=== PATIENT | male | born 1950 | race African-American/Black ===

== ENCOUNTER 2017-07-07 21:21 | Inpatient (IN) | payer OTHER ==
[~2017-07-07] VITALS: Ht 172.7 cm; Wt 93.4 kg
[2017-07-07 21:10] VITALS: BP 146/86
[2017-07-07 21:20] VITALS: BP 146/86
[2017-07-07] MEDS ORDERED: ZOLPIDEM TARTRATE 5MG TABLET PO PRN (21:45)
[2017-07-07] MEDS ORDERED: CLONIDINE 0.1MG TABLET PO PRN (21:45)
[2017-07-07] MEDS ORDERED: HYDROCODONE/ACETAMINOPHEN 5/325MG TABLET PO PRN (21:45)
[2017-07-07] MEDS ORDERED: ACETAMINOPHEN 325MG TABLET PO PRN (21:45)
[2017-07-07] MEDS ORDERED: IPRATROPIUM/ALBUTEROL 0.5-3(2.5)MG/3ML NEB HHN PRN (21:45)
[2017-07-07] MEDS ORDERED: ONDANSETRON HCL 4MG TABLET PO PRN (21:45)
[2017-07-07] MEDS: NIFEDIPINE XL 60MG TAB PO SCH (22:32)
[2017-07-08] MEDS ORDERED: OLME40TA12 PO ×2 (03:28→03:37)
[2017-07-08] MEDS ORDERED: FURO40TA5 PO (03:30)
[2017-07-08] MEDS ORDERED: ACET1TAB12 PO (03:30)
[2017-07-08] MEDS ORDERED: COLC0.6T66 PO (03:37)
[2017-07-08] MEDS ORDERED: ALLO300T2 PO (03:37)
[2017-07-08] MEDS ORDERED: DICL75TA5 PO (03:37)
[2017-07-08] MEDS ORDERED: POTA10TA15 PO (03:37)
[2017-07-08] MEDS ORDERED: AMLO10TA4 PO (03:37)
[2017-07-08] MEDS ORDERED: PERINDOPRIL PO (03:39)
[2017-07-08 07:51] LABS: BASOPHILS % 1.3 % (0.0-2.0); EOSINOPHILS % 3.9 % (0.0-5.0); HEMATOCRIT. 40.8 % (42.0-52.0); HEMOGLOBIN. 13.4 g/dL (14.0-18.0); LYMPHOCYTES % 14.3 % (20.0-50.0); MEAN CORPUSCULAR HEMOGLOBIN 28.1 pg (28.0-32.0); MEAN CORPUSCULAR VOLUME 85.2 fL (80.0-94.0); MEAN PLATELET VOLUME 9.9 fl (7.4-10.4); MONOCYTES % 14.1 % (2.0-8.0); NEUTROPHILS % 66.4 % (40.0-76.0); PLATELET 212 x1000/uL (130-400); RED BLOOD CELL COUNT 4.79 mill/uL (4.7-6.1); RED CELL DISTRIBUTION WIDTH 15.6 % (11.6-14.6)
[2017-07-08 08:00] VITALS: BP 155/76
[2017-07-08 08:33] LABS: CARBON DIOXIDE 24 mEq/L (21-32); CHLORIDE 97 mEq/L (98-107); PREALBUMIN 14.3 mg/dL (20.0-40.0)
[2017-07-08] MEDS: CLONIDINE 0.1MG TABLET PO SCH ×2 (09:00→17:47)
[2017-07-08] MEDS ORDERED: ENOXAPARIN 40MG/0.4ML SYR SUBCUT SCH (09:00)
[2017-07-08] MEDS ORDERED: BENAZEPRIL 5MG TABLET PO SCH (09:00)
[2017-07-08] MEDS: DOCUSATE SODIUM 100MG CAPSULE PO SCH ×2 (09:31→17:47)
[2017-07-08] MEDS: CLOPIDOGREL 75MG TABLET PO SCH (09:31)
[2017-07-08] MEDS: HYDROCHLOROTHIAZIDE 25MG TABLET PO SCH (09:32)
[2017-07-08] MEDS: NIFEDIPINE XL 60MG TAB PO SCH ×2 (09:32→20:28)
[2017-07-08] MEDS: METOPROLOL TARTRATE 50MG TABLET PO SCH ×2 (09:32→20:29)
[2017-07-08] MEDS: MINOXIDIL 2.5MG TABLET PO SCH (09:33)
[2017-07-08 11:05] VITALS: BP 139/82
[2017-07-08] MEDS: LISINOPRIL 40MG TABLET PO SCH ×2 (11:08→20:28)
[2017-07-08 12:59] LABS: T4 FREE 1.12 ng/dL (0.76-1.46)
[2017-07-08 17:40] VITALS: BP 175/91
[2017-07-08 18:55] VITALS: BP 133/70
[2017-07-08 20:00] VITALS: BP 166/81
[2017-07-08 21:25] VITALS: BP 132/65
[2017-07-09 06:25] LABS: HEMATOCRIT. 39.3 % (42.0-52.0); HEMOGLOBIN. 13.2 g/dL (14.0-18.0); MEAN CORPUSCULAR HEMOGLOBIN 28.3 pg (28.0-32.0); MEAN CORPUSCULAR VOLUME 84.6 fL (80.0-94.0); MEAN PLATELET VOLUME 9.8 fl (7.4-10.4); PLATELET 194 x1000/uL (130-400); RED BLOOD CELL COUNT 4.64 mill/uL (4.7-6.1); RED CELL DISTRIBUTION WIDTH 15.6 % (11.6-14.6)
[2017-07-09 06:43] LABS: CARBON DIOXIDE 26 mEq/L (21-32); CHLORIDE 97 mEq/L (98-107)
[2017-07-09 07:59] VITALS: BP 162/63
[2017-07-09] MEDS: CLOPIDOGREL 75MG TABLET PO SCH (08:17)
[2017-07-09] MEDS: NIFEDIPINE XL 60MG TAB PO SCH ×2 (08:18→21:45)
[2017-07-09] MEDS: CLONIDINE 0.1MG TABLET PO SCH ×2 (08:18→16:33)
[2017-07-09] MEDS: HYDROCHLOROTHIAZIDE 25MG TABLET PO SCH (08:19)
[2017-07-09] MEDS: MINOXIDIL 2.5MG TABLET PO SCH (08:19)
[2017-07-09] MEDS: METOPROLOL TARTRATE 50MG TABLET PO SCH ×2 (08:19→21:45)
[2017-07-09] MEDS: DOCUSATE SODIUM 100MG CAPSULE PO SCH ×2 (08:19→16:26)
[2017-07-09] MEDS: LISINOPRIL 40MG TABLET PO SCH ×2 (08:19→21:44)
[2017-07-09] MEDS: ENOXAPARIN 30MG/0.3ML SYR SUBCUT SCH ×2 (08:19→21:46)
[2017-07-09 08:28] LABS: PLATELET ESTIMATE NORMAL
[2017-07-09] MEDS ORDERED: POTASSIUM CHLORIDE 20MEQ TABLET SR PO NR (08:30)
[2017-07-09 20:07] VITALS: BP 180/86
[2017-07-10] MEDS: LEVOTHYROXINE SODIUM 25MCG TABLET PO SCH (06:15)
[2017-07-10 08:00] VITALS: BP 159/72
[2017-07-10] MEDS: ENOXAPARIN 30MG/0.3ML SYR SUBCUT SCH ×2 (08:56→21:52)
[2017-07-10] MEDS: CLOPIDOGREL 75MG TABLET PO SCH (08:56)
[2017-07-10] MEDS: MINOXIDIL 2.5MG TABLET PO SCH (08:57)
[2017-07-10] MEDS: NIFEDIPINE XL 60MG TAB PO SCH ×2 (08:58→21:51)
[2017-07-10] MEDS: METOPROLOL TARTRATE 50MG TABLET PO SCH ×2 (08:58→21:51)
[2017-07-10] MEDS: CLONIDINE 0.1MG TABLET PO SCH ×2 (08:58→16:47)
[2017-07-10] MEDS: LISINOPRIL 40MG TABLET PO SCH ×2 (08:58→21:50)
[2017-07-10] MEDS: DOCUSATE SODIUM 100MG CAPSULE PO SCH ×2 (08:58→16:47)
[2017-07-10] MEDS ORDERED: HYDROCHLOROTHIAZIDE 25MG TABLET PO SCH (09:00)
[2017-07-10] MEDS: FERROUS SULFATE 325MG TABLET PO SCH (09:02)
[2017-07-10] MEDS: LACTULOSE 20G/30ML UDC PO SCH ×3 (10:10→16:47)
[2017-07-10 10:25] LABS: CARBON DIOXIDE 25 mEq/L (21-32); CHLORIDE 96 mEq/L (98-107)
[2017-07-10 10:48] VITALS: BP 134/76
[2017-07-10] MEDS ORDERED: SODIUM CHLORIDE 0.9% 10ML VIAL ONE (11:07)
[2017-07-10] MEDS ORDERED: IOHEXOL-350 100 ML BOTTLE ONE (11:07)
[2017-07-10 20:00] VITALS: BP 170/92
[2017-07-11] VITALS: BP 130/76
[2017-07-11] MEDS ORDERED: VANCOMYCIN 1,750 MG in DEXT 5% WATER 500 ML IV NR (01:00)
[2017-07-11] MEDS: LEVOTHYROXINE SODIUM 25MCG TABLET PO SCH (06:17)
[2017-07-11 07:25] VITALS: BP 155/77
[2017-07-11] MEDS: DOCUSATE SODIUM 100MG CAPSULE PO SCH ×2 (09:46→18:06)
[2017-07-11] MEDS: LISINOPRIL 40MG TABLET PO SCH ×2 (09:46→20:35)
[2017-07-11] MEDS: CLONIDINE 0.1MG TABLET PO SCH ×3 (09:46→20:27)
[2017-07-11] MEDS: NIFEDIPINE XL 60MG TAB PO SCH ×2 (09:46→21:22)
[2017-07-11] MEDS: FERROUS SULFATE 325MG TABLET PO SCH (09:46)
[2017-07-11] MEDS: METOPROLOL TARTRATE 50MG TABLET PO SCH ×2 (09:47→21:22)
[2017-07-11] MEDS: MINOXIDIL 2.5MG TABLET PO SCH (09:47)
[2017-07-11] MEDS: CLOPIDOGREL 75MG TABLET PO SCH (09:47)
[2017-07-11] MEDS: ENOXAPARIN 30MG/0.3ML SYR SUBCUT SCH ×2 (09:47→21:17)
[2017-07-11] MEDS: HYDROCHLOROTHIAZIDE 50MG TABLET PO SCH (10:00)
[2017-07-11 10:18] LABS: HEMATOCRIT. 41.2 % (42.0-52.0); HEMOGLOBIN. 13.7 g/dL (14.0-18.0); MEAN CORPUSCULAR VOLUME 84.2 fL (80.0-94.0); MEAN PLATELET VOLUME 9.6 fl (7.4-10.4); PLATELET 203 x1000/uL (130-400); RED BLOOD CELL COUNT 4.89 mill/uL (4.7-6.1); RED CELL DISTRIBUTION WIDTH 15.2 % (11.6-14.6)
[2017-07-11 10:32] LABS: CARBON DIOXIDE 27 mEq/L (21-32); CHLORIDE 94 mEq/L (98-107)
[2017-07-11 12:14] LABS: ANTI-CARDIOLIPIN AB IGA < 9 APL U/mL (0-11); ANTI-CARDIOLIPIN AB IGG < 9 GPL U/mL (0-14); ANTI-CARDIOLIPIN AB IGM < 9 MPL U/mL (0-12)
[2017-07-11 20:00] VITALS: BP 164/53
[2017-07-11] MEDS ORDERED: POTASSIUM CHLORIDE 20MEQ/PACKET PO NR (20:00)
[2017-07-11] MEDS: VANCOMYCIN 1500MG in DEXTROSE 5% WATER 250ML IV SCH (21:16)
[2017-07-11] MEDS ORDERED: MAGNESIUM 2 G PREMIX 50 ML IV NR (21:30)
[2017-07-11 22:57] LABS: PLATELET ESTIMATE NORMAL
[2017-07-12 05:28] LABS: CLARITY URINE CLEAR (CLEAR); COLOR URINE YELLOW (YELLOW); GLUCOSE URINE NEGATIVE (NEGATIVE); KETONES URINE NEGATIVE (NEGATIVE); LEUKOCYTE ESTERASE URINE 1+ (NEGATIVE); NITRITE URINE NEGATIVE (NEGATIVE); OCCULT BLOOD URINE NEGATIVE (NEGATIVE); PH URINE 7.5 (4.5-8.0); PROTEIN URINE NEGATIVE (NEGATIVE); SPECIFIC GRAVITY URINE 1.018 (1.005-1.030)
[2017-07-12] MEDS: LEVOTHYROXINE SODIUM 25MCG TABLET PO SCH (06:13)
[2017-07-12 06:53] LABS: HEMATOCRIT. 38.7 % (42.0-52.0); HEMOGLOBIN. 13.1 g/dL (14.0-18.0); MEAN CORPUSCULAR HEMOGLOBIN 28.2 pg (28.0-32.0); MEAN CORPUSCULAR VOLUME 83.6 fL (80.0-94.0); MEAN PLATELET VOLUME 10.1 fl (7.4-10.4); PLATELET 192 x1000/uL (130-400); RED BLOOD CELL COUNT 4.63 mill/uL (4.7-6.1)
[2017-07-12 07:35] LABS: CARBON DIOXIDE 26 mEq/L (21-32); CHLORIDE 95 mEq/L (98-107)
[2017-07-12 08:30] VITALS: BP 165/77
[2017-07-12] MEDS: FERROUS SULFATE 325MG TABLET PO SCH (10:15)
[2017-07-12] MEDS: CLOPIDOGREL 75MG TABLET PO SCH (10:15)
[2017-07-12] MEDS: NIFEDIPINE XL 60MG TAB PO SCH ×2 (10:15→20:28)
[2017-07-12] MEDS: CLONIDINE 0.1MG TABLET PO SCH ×2 (10:16→20:27)
[2017-07-12] MEDS: HYDROCHLOROTHIAZIDE 50MG TABLET PO SCH (10:16)
[2017-07-12] MEDS: DOCUSATE SODIUM 100MG CAPSULE PO SCH ×2 (10:16→17:10)
[2017-07-12] MEDS: MINOXIDIL 2.5MG TABLET PO SCH ×2 (10:16→20:28)
[2017-07-12] MEDS: LISINOPRIL 40MG TABLET PO SCH ×2 (10:17→20:28)
[2017-07-12] MEDS: METOPROLOL TARTRATE 50MG TABLET PO SCH ×2 (10:17→20:27)
[2017-07-12] MEDS: ENOXAPARIN 30MG/0.3ML SYR SUBCUT SCH ×2 (10:27→20:28)
[2017-07-12] MEDS: VANCOMYCIN 1500MG in DEXTROSE 5% WATER 250ML IV SCH (14:14)
[2017-07-12 16:36] LABS: PLATELET ESTIMATE NORMAL
[2017-07-12 20:00] VITALS: BP 179/94
[2017-07-12 21:30] VITALS: BP 150/80
[2017-07-13] MEDS: LEVOTHYROXINE SODIUM 25MCG TABLET PO SCH (06:13)
[2017-07-13 06:15] LABS: CARBON DIOXIDE 25 mEq/L (21-32); CHLORIDE 95 mEq/L (98-107)
[2017-07-13 07:19] VITALS: BP 132/52
[2017-07-13] MEDS: VANCOMYCIN 1500MG in DEXTROSE 5% WATER 250ML IV SCH (07:38)
[2017-07-13] MEDS ORDERED: LIDOCAINE HCL 2% JELLY 5ML ONE (08:46)
[2017-07-13] MEDS ORDERED: DIPHENHYDRAMINE 50MG/ML VIAL ONE (08:46)
[2017-07-13] MEDS ORDERED: TETRACAINE/BENZOCAINE/BUTAMBEN 20 GM SPRAY MM ONE (08:47)
[2017-07-13] MEDS ORDERED: MIDAZOLAM HCL 2 MG/2 ML VIAL ONE ×2 (08:51→09:00)
[2017-07-13] MEDS ORDERED: FENTANYL CITRATE/PF 50MCG/ML 2ML VIAL ONE (08:52)
[2017-07-13] MEDS: MINOXIDIL 2.5MG TABLET PO SCH ×2 (09:00→20:30)
[2017-07-13] MEDS: NIFEDIPINE XL 60MG TAB PO SCH ×2 (09:00→20:36)
[2017-07-13] MEDS: HYDROCHLOROTHIAZIDE 50MG TABLET PO SCH (09:00)
[2017-07-13] MEDS: LISINOPRIL 40MG TABLET PO SCH ×2 (09:00→20:29)
[2017-07-13] MEDS: CLOPIDOGREL 75MG TABLET PO SCH (09:00)
[2017-07-13] MEDS: CLONIDINE 0.1MG TABLET PO SCH ×2 (09:00→20:30)
[2017-07-13] MEDS: DOCUSATE SODIUM 100MG CAPSULE PO SCH ×2 (09:00→17:23)
[2017-07-13] MEDS: FERROUS SULFATE 325MG TABLET PO SCH (09:00)
[2017-07-13 09:06] LABS: 25-HYDROXY VITAMIN D3 4.9 ng/mL (.)
[2017-07-13] MEDS ORDERED: NALOXONE HCL 0.4 MG/ML 1ML VIAL ONE ×3 (09:08→09:18)
[2017-07-13 10:30] VITALS: BP 148/81
[2017-07-13] MEDS: ENOXAPARIN 30MG/0.3ML SYR SUBCUT SCH ×2 (11:39→20:31)
[2017-07-13 17:20] VITALS: BP 154/78
[2017-07-13 19:58] VITALS: BP 153/74
[2017-07-13] MEDS: CARVEDILOL 25MG TABLET PO SCH (20:29)
[2017-07-14] MEDS: VANCOMYCIN 1250MG in DEXTROSE 5% WATER 250ML IV SCH ×2 (05:22→23:36)
[2017-07-14] MEDS: LEVOTHYROXINE SODIUM 25MCG TABLET PO SCH (06:10)
[2017-07-14 08:00] VITALS: BP 145/68
[2017-07-14] MEDS: LISINOPRIL 40MG TABLET PO SCH ×2 (09:45→21:50)
[2017-07-14] MEDS: NIFEDIPINE XL 60MG TAB PO SCH ×2 (09:45→21:51)
[2017-07-14] MEDS: DOCUSATE SODIUM 100MG CAPSULE PO SCH ×2 (09:46→17:22)
[2017-07-14] MEDS: POTASSIUM CHLORIDE 20MEQ TABLET SR PO SCH (09:46)
[2017-07-14] MEDS: CLOPIDOGREL 75MG TABLET PO SCH (09:46)
[2017-07-14] MEDS: CLONIDINE 0.1MG TABLET PO SCH ×2 (09:47→21:52)
[2017-07-14] MEDS: CARVEDILOL 25MG TABLET PO SCH ×2 (09:47→21:47)
[2017-07-14] MEDS: MINOXIDIL 2.5MG TABLET PO SCH ×2 (09:47→21:49)
[2017-07-14] MEDS: ENOXAPARIN 30MG/0.3ML SYR SUBCUT SCH ×2 (09:48→21:51)
[2017-07-14 20:00] VITALS: BP 146/67
[2017-07-14] MEDS ORDERED: SENNOSIDES 8.6MG TABLET PO PRN (21:41)
[2017-07-15] MEDS: LEVOTHYROXINE SODIUM 25MCG TABLET PO SCH (06:12)
[2017-07-15 06:56] LABS: HEMATOCRIT. 39.3 % (42.0-52.0); HEMOGLOBIN. 13.2 g/dL (14.0-18.0); MEAN CORPUSCULAR HEMOGLOBIN 28.1 pg (28.0-32.0); MEAN CORPUSCULAR VOLUME 83.9 fL (80.0-94.0); MEAN PLATELET VOLUME 10.6 fl (7.4-10.4); PLATELET 215 x1000/uL (130-400); RED BLOOD CELL COUNT 4.68 mill/uL (4.7-6.1); RED CELL DISTRIBUTION WIDTH 14.8 % (11.6-14.6)
[2017-07-15 07:42] LABS: CHLORIDE 101 mEq/L (98-107)
[2017-07-15 07:57] LABS: CARBON DIOXIDE 23 mEq/L (21-32)
[2017-07-15 08:00] VITALS: BP 137/47
[2017-07-15] MEDS: DOCUSATE SODIUM 100MG CAPSULE PO SCH ×2 (08:41→17:23)
[2017-07-15] MEDS: POTASSIUM CHLORIDE 20MEQ TABLET SR PO SCH (08:41)
[2017-07-15] MEDS: CARVEDILOL 25MG TABLET PO SCH ×2 (08:42→21:26)
[2017-07-15] MEDS: MINOXIDIL 2.5MG TABLET PO SCH ×2 (08:42→21:21)
[2017-07-15] MEDS: LISINOPRIL 40MG TABLET PO SCH ×2 (08:43→21:23)
[2017-07-15] MEDS: NIFEDIPINE XL 60MG TAB PO SCH ×2 (08:43→21:28)
[2017-07-15] MEDS: CLOPIDOGREL 75MG TABLET PO SCH (08:43)
[2017-07-15] MEDS: ENOXAPARIN 30MG/0.3ML SYR SUBCUT SCH ×2 (08:43→21:29)
[2017-07-15] MEDS: CLONIDINE 0.1MG TABLET PO SCH ×2 (10:02→21:26)
[2017-07-15] MEDS: LACTULOSE 20G/30ML UDC PO SCH ×2 (14:00→21:21)
[2017-07-15] MEDS ORDERED: BISACODYL 10MG SUPP PR PRN (14:15)
[2017-07-15] MEDS: VANCOMYCIN 1250MG in DEXTROSE 5% WATER 250ML IV SCH (17:22)
[2017-07-15 20:00] VITALS: BP 135/75
[2017-07-15 22:06] LABS: ATYPICAL LYMPHOCYTES 1; PLATELET ESTIMATE NORMAL
[2017-07-16] MEDS: LACTULOSE 20G/30ML UDC PO SCH ×3 (06:00→22:00)
[2017-07-16] MEDS: LEVOTHYROXINE SODIUM 25MCG TABLET PO SCH (06:31)
[2017-07-16 07:01] VITALS: BP 130/56
[2017-07-16] MEDS: NIFEDIPINE XL 60MG TAB PO SCH (08:29)
[2017-07-16] MEDS: CLOPIDOGREL 75MG TABLET PO SCH (08:29)
[2017-07-16] MEDS: DOCUSATE SODIUM 100MG CAPSULE PO SCH ×2 (08:30→16:46)
[2017-07-16] MEDS: CARVEDILOL 25MG TABLET PO SCH ×2 (08:30→22:32)
[2017-07-16] MEDS: POTASSIUM CHLORIDE 20MEQ TABLET SR PO SCH (08:30)
[2017-07-16] MEDS: MINOXIDIL 2.5MG TABLET PO SCH ×2 (08:30→23:28)
[2017-07-16] MEDS: LISINOPRIL 40MG TABLET PO SCH ×2 (08:31→23:28)
[2017-07-16] MEDS: CLONIDINE 0.1MG TABLET PO SCH ×2 (08:31→21:00)
[2017-07-16] MEDS: ENOXAPARIN 30MG/0.3ML SYR SUBCUT SCH ×2 (08:31→22:30)
[2017-07-16 10:30] VITALS: BP_SYST 127; BP_SYST 98; BP_DIAS 48; BP_DIAS 54
[2017-07-16 19:00] VITALS: BP_SYST 123; BP_SYST 164; BP_DIAS 62; BP_DIAS 66
[2017-07-16] MEDS: NIFEDIPINE XL 30MG TAB PO SCH (22:31)
[2017-07-17] MEDS: LACTULOSE 20G/30ML UDC PO SCH ×3 (06:00→21:36)
[2017-07-17] MEDS: LEVOTHYROXINE SODIUM 25MCG TABLET PO SCH (06:05)
[2017-07-17 08:00] VITALS: BP 101/65
[2017-07-17] MEDS: CARVEDILOL 25MG TABLET PO SCH ×2 (09:00→21:34)
[2017-07-17] MEDS: CLONIDINE 0.1MG TABLET PO SCH ×2 (09:00→21:00)
[2017-07-17] MEDS: LISINOPRIL 40MG TABLET PO SCH ×2 (09:00→21:34)
[2017-07-17] MEDS: CLOPIDOGREL 75MG TABLET PO SCH (09:00)
[2017-07-17] MEDS: DOCUSATE SODIUM 100MG CAPSULE PO SCH ×2 (09:00→17:37)
[2017-07-17] MEDS: MINOXIDIL 2.5MG TABLET PO SCH ×2 (09:00→21:34)
[2017-07-17] MEDS: POTASSIUM CHLORIDE 20MEQ TABLET SR PO SCH (09:00)
[2017-07-17] MEDS: NIFEDIPINE XL 30MG TAB PO SCH ×2 (09:00→17:38)
[2017-07-17] MEDS: ENOXAPARIN 30MG/0.3ML SYR SUBCUT SCH ×2 (09:41→21:35)
[2017-07-17 20:00] VITALS: BP 154/61
[2017-07-17] MEDS ORDERED: ERGOCALCIFEROL 50000UNITS CAPSULE PO SCH (20:15)
[2017-07-18] MEDS: LACTULOSE 20G/30ML UDC PO SCH ×2 (06:00→13:54)
[2017-07-18] MEDS: LEVOTHYROXINE SODIUM 25MCG TABLET PO SCH (06:23)
[2017-07-18 07:12] VITALS: BP 132/51
[2017-07-18] MEDS: LISINOPRIL 40MG TABLET PO SCH (09:00)
[2017-07-18] MEDS: CLONIDINE 0.1MG TABLET PO SCH (09:00)
[2017-07-18 09:30] LABS: HEMATOCRIT. 41.2 % (42.0-52.0); HEMOGLOBIN. 13.7 g/dL (14.0-18.0); MEAN CORPUSCULAR HEMOGLOBIN 27.9 pg (28.0-32.0); MEAN PLATELET VOLUME 10.1 fl (7.4-10.4); PLATELET 211 x1000/uL (130-400); RED BLOOD CELL COUNT 4.91 mill/uL (4.7-6.1); RED CELL DISTRIBUTION WIDTH 14.8 % (11.6-14.6)
[2017-07-18] MEDS: POTASSIUM CHLORIDE 20MEQ TABLET SR PO SCH (09:54)
[2017-07-18] MEDS: MINOXIDIL 2.5MG TABLET PO SCH (09:54)
[2017-07-18] MEDS: CARVEDILOL 25MG TABLET PO SCH (09:54)
[2017-07-18] MEDS: CLOPIDOGREL 75MG TABLET PO SCH (09:54)
[2017-07-18] MEDS: DOCUSATE SODIUM 100MG CAPSULE PO SCH ×2 (09:54→17:00)
[2017-07-18] MEDS: NIFEDIPINE XL 30MG TAB PO SCH (09:54)
[2017-07-18] MEDS: ENOXAPARIN 30MG/0.3ML SYR SUBCUT SCH (09:54)
[2017-07-18 14:24] LABS: PLATELET ESTIMATE NORMAL
[2017-07-18 16:05] VITALS: BP 132/51
[2017-07-18] MEDS ORDERED: SODIUM CHLORIDE 0.9% 1,000 ML IV SCH (19:00)
[2017-07-19] MEDS ORDERED: ZINC SULFATE 220 MG ( 50 ) CAPSULE PO SCH (09:00)
== END 2017-07-18 19:55 | disposition short-term general hospital (02) | DRG 64 ==
PROVIDERS: ADMIT Physical Medicine & Rehabilitation Spinal Cord Injury Medicine; ATTEND Internal Medicine Nephrology
DX: I63.9 Cerebral infarction, unspecified (principal); I21.4 Non-ST elevation (NSTEMI) myocardial infarction; G82.50 Quadriplegia, unspecified; N17.9 Acute kidney failure, unspecified; A41.9 Sepsis, unspecified organism; E22.2 Syndrome of inappropriate secretion of antidiuretic hormone; E46 Unspecified protein-calorie malnutrition; I42.9 Cardiomyopathy, unspecified; I48.91 Unspecified atrial fibrillation; I50.20 Unspecified systolic (congestive) heart failure; I11.0 Hypertensive heart disease with heart failure; Z68.41 Body mass index [BMI] 40.0-44.9, adult; G81.91 Hemiplegia, unspecified affecting right dominant side; L97.919 Non-pressure chronic ulcer of unspecified part of right lower leg with unspecified severity; L03.116 Cellulitis of left lower limb; L03.115 Cellulitis of right lower limb; E44.1 Mild protein-calorie malnutrition; E11.622 Type 2 diabetes mellitus with other skin ulcer; E11.65 Type 2 diabetes mellitus with hyperglycemia; R13.10 Dysphagia, unspecified; I27.2 Other secondary pulmonary hypertension; R47.01 Aphasia; R29.810 Facial weakness; E66.01 Morbid (severe) obesity due to excess calories; D64.9 Anemia, unspecified; R47.1 Dysarthria and anarthria; R26.89 Other abnormalities of gait and mobility; F06.31 Mood disorder due to known physiological condition with depressive features; E87.6 Hypokalemia; F01.50 Vascular dementia, unspecified severity, without behavioral disturbance, psychotic disturbance, mood disturbance, and anxiety; E55.9 Vitamin D deficiency, unspecified; E03.9 Hypothyroidism, unspecified; D50.9 Iron deficiency anemia, unspecified; F10.21 Alcohol dependence, in remission; B95.8 Unspecified staphylococcus as the cause of diseases classified elsewhere; R33.9 Retention of urine, unspecified; K59.00 Constipation, unspecified; Z79.899 Other long term (current) drug therapy
CPT/HCPCS: 36415; 70496; 70498; 70551; 71020; 76770; 80048; 80053; 80061; 80202; 81001; 81400; 81403; 81407; 81479; 82306; 82533; 82607; 82728; 82746; 82962; 83036; 83540; 83550; 83735; 83930; 84134; 84153; 84300; 84439; 84443; 84481; 84550; 84630; 85025; 85300; 85303; 85306; 85613; 85651; 86140; 86147; 86376; 87040; 87086; 92523; 92610; 93005; 93306; 93312; 93970; 97110; 97112; 97116; 97163; 97166; 97530; 97532; 97535; A4216; J1200; J1650; J2250; J2310; J3010; J3370; J3475; J7040; J7050; J7060; J7620; Q9967; A4315

== ENCOUNTER 2017-07-18 20:00 | Inpatient (IN) | payer OTHER ==
[~2017-07-18] VITALS: Ht 170.2 cm; Wt 102.5 kg
[~2017-07-18 20:00] MED LIST: ACET1TAB12 PO; ALLO300T2 PO; AMLO10TA4 PO; COLC0.6T66 PO; DICL75TA5 PO; FURO40TA5 PO; OLME40TA12 PO; PERINDOPRIL PO; POTA10TA15 PO
[2017-07-19] VITALS (7 sets, daily range): BP systolic 141–173; BP diastolic 60–82
[2017-07-19] MEDS ORDERED: ACETAMINOPHEN 325MG TABLET PO PRN (00:15)
[2017-07-19] MEDS ORDERED: IPRATROPIUM/ALBUTEROL 0.5-3(2.5)MG/3ML NEB HHN PRN (00:15)
[2017-07-19] MEDS ORDERED: SENNOSIDES 8.6MG TABLET PO PRN (00:15)
[2017-07-19] MEDS ORDERED: SODIUM CHLORIDE 0.9% 1,000 ML IV SCH (00:15)
[2017-07-19] MEDS ORDERED: BISACODYL 5MG TABLET PO PRN (00:15)
[2017-07-19] MEDS ORDERED: ONDANSETRON HCL 4MG TABLET PO PRN (00:15)
[2017-07-19] MEDS: LACTULOSE 20G/30ML UDC PO SCH ×2 (06:00→14:00)
[2017-07-19] MEDS: LEVOTHYROXINE SODIUM 25MCG TABLET PO SCH (07:13)
[2017-07-19] MEDS: SODIUM CHLORIDE 0.9% 1,000 ML IV SCH ×2 (07:20→17:35)
[2017-07-19] MEDS ORDERED: NIFEDIPINE XL 30MG TAB PO SCH (09:00)
[2017-07-19] MEDS ORDERED: POTASSIUM CHLORIDE 20MEQ TABLET SR PO SCH (09:00)
[2017-07-19] MEDS: CLONIDINE 0.1MG TABLET PO SCH (09:00)
[2017-07-19] MEDS ORDERED: ENOXAPARIN 30MG/0.3ML SYR SUBCUT SCH (09:00)
[2017-07-19] MEDS: DOCUSATE SODIUM 100MG CAPSULE PO SCH ×2 (10:02→17:35)
[2017-07-19] MEDS: CARVEDILOL 25MG TABLET PO SCH ×2 (10:02→21:56)
[2017-07-19] MEDS: MINOXIDIL 2.5MG TABLET PO SCH ×2 (10:03→21:55)
[2017-07-19] MEDS: ZINC SULFATE 220 MG ( 50 ) CAPSULE PO SCH (10:03)
[2017-07-19] MEDS: LISINOPRIL 40MG TABLET PO SCH ×2 (10:04→21:56)
[2017-07-19] MEDS: CLOPIDOGREL 75MG TABLET PO SCH (10:04)
[2017-07-19] MEDS: ENOXAPARIN 30MG/0.3ML SYR SUBCUT SCH (10:05)
[2017-07-20] VITALS: BP 144/57
[2017-07-20 04:00] VITALS: BP 171/71
[2017-07-20] MEDS: SODIUM CHLORIDE 0.9% 1,000 ML IV SCH (06:05)
[2017-07-20] MEDS: LEVOTHYROXINE SODIUM 25MCG TABLET PO SCH (06:05)
[2017-07-20] MEDS: CLONIDINE 0.1MG TABLET PO SCH ×3 (06:06→22:04)
[2017-07-20] MEDS ORDERED: POTASSIUM CHLORIDE 20MEQ TABLET SR PO ONE (06:30)
[2017-07-20 06:50] LABS: HEMATOCRIT. 41.7 % (42.0-52.0); HEMOGLOBIN. 13.9 g/dL (14.0-18.0); MEAN CORPUSCULAR HEMOGLOBIN 27.9 pg (28.0-32.0); MEAN PLATELET VOLUME 10.2 fl (7.4-10.4); PLATELET 238 x1000/uL (130-400); RED BLOOD CELL COUNT 4.97 mill/uL (4.7-6.1)
[2017-07-20] MEDS ORDERED: OMEPRAZOLE 20MG CAPSULE EXTENDED RELEASE PO SCH (07:20)
[2017-07-20 08:00] VITALS: BP 163/91
[2017-07-20] MEDS ORDERED: METOPROLOL TARTRATE 50MG TABLET PO SCH (09:00)
[2017-07-20] MEDS ORDERED: CHLORTHALIDONE 25MG TABLET PO SCH (09:00)
[2017-07-20] MEDS ORDERED: LISINOPRIL 40MG TABLET PO SCH (09:00)
[2017-07-20] MEDS: ENOXAPARIN 30MG/0.3ML SYR SUBCUT SCH (09:08)
[2017-07-20] MEDS: CLOPIDOGREL 75MG TABLET PO SCH (09:08)
[2017-07-20] MEDS: ZINC SULFATE 220 MG ( 50 ) CAPSULE PO SCH (09:08)
[2017-07-20] MEDS: DOCUSATE SODIUM 100MG CAPSULE PO SCH ×2 (09:08→16:45)
[2017-07-20] MEDS: LISINOPRIL 40MG TABLET PO SCH ×2 (09:09→22:04)
[2017-07-20] MEDS: CARVEDILOL 25MG TABLET PO SCH ×2 (09:09→22:04)
[2017-07-20] MEDS: MINOXIDIL 2.5MG TABLET PO SCH ×2 (09:09→22:04)
[2017-07-20 11:25] LABS: CLARITY URINE CLEAR (CLEAR); COLOR URINE YELLOW (YELLOW); GLUCOSE URINE NEGATIVE (NEGATIVE); KETONES URINE NEGATIVE (NEGATIVE); LEUKOCYTE ESTERASE URINE 2+ (NEGATIVE); NITRITE URINE NEGATIVE (NEGATIVE); OCCULT BLOOD URINE NEGATIVE (NEGATIVE); PROTEIN URINE 1+ (NEGATIVE); SPECIFIC GRAVITY URINE 1.015 (1.005-1.030)
[2017-07-20 12:00] VITALS: BP 160/88
[2017-07-20 16:00] VITALS: BP 157/82
[2017-07-20 20:00] VITALS: BP 141/75
[2017-07-21] VITALS: BP 120/60
[2017-07-21 04:00] VITALS: BP 124/73
[2017-07-21] MEDS: LEVOTHYROXINE SODIUM 25MCG TABLET PO SCH (06:58)
[2017-07-21 08:00] VITALS: BP 145/77
[2017-07-21] MEDS: CLONIDINE 0.1MG TABLET PO SCH ×2 (09:00→20:59)
[2017-07-21] MEDS ORDERED: ERGOCALCIFEROL 50000UNITS CAPSULE PO SCH (09:00)
[2017-07-21 09:39] LABS: ATYPICAL LYMPHOCYTES 1; PLATELET ESTIMATE NORMAL
[2017-07-21 09:46] LABS: HEMATOCRIT. 44.5 % (42.0-52.0); HEMOGLOBIN. 15.1 g/dL (14.0-18.0); MEAN CORPUSCULAR HEMOGLOBIN 28.5 pg (28.0-32.0); MEAN CORPUSCULAR VOLUME 84.4 fL (80.0-94.0); MEAN PLATELET VOLUME 9.7 fl (7.4-10.4); PLATELET 221 x1000/uL (130-400); RED BLOOD CELL COUNT 5.28 mill/uL (4.7-6.1); RED CELL DISTRIBUTION WIDTH 14.5 % (11.6-14.6)
[2017-07-21] MEDS: DOCUSATE SODIUM 100MG CAPSULE PO SCH ×2 (10:24→17:45)
[2017-07-21] MEDS: MINOXIDIL 2.5MG TABLET PO SCH ×2 (10:24→21:00)
[2017-07-21] MEDS: CLOPIDOGREL 75MG TABLET PO SCH (10:24)
[2017-07-21] MEDS: ZINC SULFATE 220 MG ( 50 ) CAPSULE PO SCH (10:24)
[2017-07-21] MEDS: LISINOPRIL 40MG TABLET PO SCH ×2 (10:24→20:59)
[2017-07-21] MEDS: CARVEDILOL 25MG TABLET PO SCH ×2 (10:24→20:59)
[2017-07-21] MEDS: ENOXAPARIN 30MG/0.3ML SYR SUBCUT SCH (10:25)
[2017-07-21 12:00] VITALS: BP 152/81
[2017-07-21 12:45] LABS: PLATELET ESTIMATE NORMAL
[2017-07-21 16:00] VITALS: BP 156/58
[2017-07-21 20:00] VITALS: BP 149/88
[2017-07-22] VITALS: BP 142/73
[2017-07-22 04:00] VITALS: BP 123/63
[2017-07-22] MEDS: LEVOTHYROXINE SODIUM 25MCG TABLET PO SCH (06:33)
[2017-07-22 07:15] LABS: HEMATOCRIT. 41.1 % (42.0-52.0); HEMOGLOBIN. 13.8 g/dL (14.0-18.0); MEAN CORPUSCULAR HEMOGLOBIN 28.3 pg (28.0-32.0); MEAN CORPUSCULAR VOLUME 84.3 fL (80.0-94.0); PLATELET 246 x1000/uL (130-400); RED BLOOD CELL COUNT 4.88 mill/uL (4.7-6.1); RED CELL DISTRIBUTION WIDTH 14.7 % (11.6-14.6)
[2017-07-22 08:00] VITALS: BP 157/69
[2017-07-22] MEDS: MINOXIDIL 2.5MG TABLET PO SCH ×2 (08:21→20:44)
[2017-07-22] MEDS: DOCUSATE SODIUM 100MG CAPSULE PO SCH ×2 (08:21→19:06)
[2017-07-22] MEDS: ZINC SULFATE 220 MG ( 50 ) CAPSULE PO SCH (08:21)
[2017-07-22] MEDS: CARVEDILOL 25MG TABLET PO SCH ×2 (08:21→20:44)
[2017-07-22] MEDS: CLOPIDOGREL 75MG TABLET PO SCH (08:21)
[2017-07-22] MEDS: LISINOPRIL 40MG TABLET PO SCH ×2 (08:21→20:45)
[2017-07-22] MEDS: CLONIDINE 0.1MG TABLET PO SCH ×2 (08:22→20:46)
[2017-07-22] MEDS: ENOXAPARIN 30MG/0.3ML SYR SUBCUT SCH (08:22)
[2017-07-22] MEDS: LACTULOSE 20G/30ML UDC PO SCH ×3 (09:21→16:02)
[2017-07-22] MEDS ORDERED: LEVOFLOXACIN 500MG PREMIX 100 ML IV SCH (10:00)
[2017-07-22] MEDS: SODIUM CHLORIDE 0.9% 1,000 ML IV SCH (10:33)
[2017-07-22 12:00] VITALS: BP 164/64
[2017-07-22 13:56] LABS: PLATELET ESTIMATE NORMAL
[2017-07-22 16:00] VITALS: BP 190/98
[2017-07-22 20:00] VITALS: BP 158/79
[2017-07-22] MEDS: POLYETHYLENE GLYCOL 3350 (17GM) 1 DOSE PACK PO SCH (20:46)
[2017-07-22] MEDS: TAMSULOSIN HCL 0.4MG SR CAPSULE PO SCH (20:49)
[2017-07-23] VITALS: BP 148/74
[2017-07-23] MEDS: SODIUM CHLORIDE 0.9% 1,000 ML IV SCH (03:24)
[2017-07-23 04:00] VITALS: BP 141/52
[2017-07-23 06:37] LABS: BASOPHILS % 1.3 % (0.0-2.0); EOSINOPHILS % 4.3 % (0.0-5.0); HEMATOCRIT. 39.8 % (42.0-52.0); HEMOGLOBIN. 13.2 g/dL (14.0-18.0); LYMPHOCYTES % 11.1 % (20.0-50.0); MEAN CORPUSCULAR HEMOGLOBIN 27.6 pg (28.0-32.0); MEAN CORPUSCULAR VOLUME 83.4 fL (80.0-94.0); MEAN PLATELET VOLUME 9.7 fl (7.4-10.4); MONOCYTES % 14.8 % (2.0-8.0); NEUTROPHILS % 68.5 % (40.0-76.0); PLATELET 231 x1000/uL (130-400); RED BLOOD CELL COUNT 4.77 mill/uL (4.7-6.1); RED CELL DISTRIBUTION WIDTH 14.8 % (11.6-14.6)
[2017-07-23] MEDS: LEVOTHYROXINE SODIUM 25MCG TABLET PO SCH (06:53)
[2017-07-23 08:00] VITALS: BP 144/65
[2017-07-23] MEDS ORDERED: LEVOFLOXACIN 250MG PREMIX 50 ML IV SCH (10:00)
[2017-07-23] MEDS: ZINC SULFATE 220 MG ( 50 ) CAPSULE PO SCH (10:05)
[2017-07-23] MEDS: TAMSULOSIN HCL 0.4MG SR CAPSULE PO SCH (10:06)
[2017-07-23] MEDS: LISINOPRIL 40MG TABLET PO SCH ×2 (10:06→21:39)
[2017-07-23] MEDS: DOCUSATE SODIUM 100MG CAPSULE PO SCH ×2 (10:07→17:08)
[2017-07-23] MEDS: CLOPIDOGREL 75MG TABLET PO SCH (10:07)
[2017-07-23] MEDS: CARVEDILOL 25MG TABLET PO SCH ×2 (10:07→21:38)
[2017-07-23] MEDS: CLONIDINE 0.1MG TABLET PO SCH ×2 (10:08→21:38)
[2017-07-23] MEDS: MINOXIDIL 2.5MG TABLET PO SCH ×2 (10:08→21:39)
[2017-07-23] MEDS: ENOXAPARIN 30MG/0.3ML SYR SUBCUT SCH (10:08)
[2017-07-23 12:09] VITALS: BP_SYST 138; BP_SYST 87; BP_DIAS 63; BP_DIAS 68
[2017-07-23 16:00] VITALS: BP 157/75
[2017-07-23 20:00] VITALS: BP 123/75
[2017-07-23] MEDS: POLYETHYLENE GLYCOL 3350 (17GM) 1 DOSE PACK PO SCH (21:38)
[2017-07-24] VITALS: BP 126/58
[2017-07-24 04:00] VITALS: BP 125/57
[2017-07-24] MEDS: LEVOTHYROXINE SODIUM 25MCG TABLET PO SCH (06:49)
[2017-07-24 08:00] VITALS: BP 157/76
[2017-07-24] MEDS: MINOXIDIL 2.5MG TABLET PO SCH (08:28)
[2017-07-24] MEDS: CARVEDILOL 25MG TABLET PO SCH ×2 (08:29→22:18)
[2017-07-24] MEDS: ZINC SULFATE 220 MG ( 50 ) CAPSULE PO SCH (08:30)
[2017-07-24] MEDS: TAMSULOSIN HCL 0.4MG SR CAPSULE PO SCH (08:30)
[2017-07-24] MEDS: LISINOPRIL 40MG TABLET PO SCH ×2 (08:30→22:18)
[2017-07-24] MEDS: DOCUSATE SODIUM 100MG CAPSULE PO SCH ×2 (08:31→16:46)
[2017-07-24] MEDS: CLONIDINE 0.1MG TABLET PO SCH ×2 (08:32→22:19)
[2017-07-24] MEDS: CLOPIDOGREL 75MG TABLET PO SCH (08:32)
[2017-07-24] MEDS: ENOXAPARIN 30MG/0.3ML SYR SUBCUT SCH (08:33)
[2017-07-24 12:00] VITALS: BP 121/56
[2017-07-24 15:46] LABS: BASOPHILS % 1.1 % (0.0-2.0); EOSINOPHILS % 3.8 % (0.0-5.0); HEMATOCRIT. 39.1 % (42.0-52.0); LYMPHOCYTES % 9.4 % (20.0-50.0); MEAN CORPUSCULAR HEMOGLOBIN 27.8 pg (28.0-32.0); MEAN CORPUSCULAR VOLUME 83.5 fL (80.0-94.0); MEAN PLATELET VOLUME 9.9 fl (7.4-10.4); NEUTROPHILS % 71.7 % (40.0-76.0); PLATELET 261 x1000/uL (130-400); RED BLOOD CELL COUNT 4.68 mill/uL (4.7-6.1); RED CELL DISTRIBUTION WIDTH 14.7 % (11.6-14.6)
[2017-07-24 15:48] LABS: CHLORIDE 106 mEq/L (98-107)
[2017-07-24 15:57] LABS: CARBON DIOXIDE 22 mEq/L (21-32)
[2017-07-24 16:00] VITALS: BP 124/82
[2017-07-24 20:00] VITALS: BP 165/57
[2017-07-24] MEDS: POLYETHYLENE GLYCOL 3350 (17GM) 1 DOSE PACK PO SCH (22:20)
[2017-07-24] MEDS ORDERED: METHYLPREDNISOLONE SOD SUCC 125 MG/2 ML VIAL IV NR (22:30)
[2017-07-24] MEDS: SODIUM CHLORIDE 0.9% 1,000 ML IV SCH (23:06)
[2017-07-25] VITALS: BP 169/68
[2017-07-25 04:00] VITALS: BP 159/71
[2017-07-25] MEDS: LEVOTHYROXINE SODIUM 25MCG TABLET PO SCH (06:54)
[2017-07-25 08:00] VITALS: BP 160/70
[2017-07-25] MEDS: TAMSULOSIN HCL 0.4MG SR CAPSULE PO SCH (09:01)
[2017-07-25] MEDS: CLONIDINE 0.1MG TABLET PO SCH ×2 (09:02→22:15)
[2017-07-25] MEDS: ZINC SULFATE 220 MG ( 50 ) CAPSULE PO SCH (09:02)
[2017-07-25] MEDS: LISINOPRIL 40MG TABLET PO SCH ×2 (09:03→22:16)
[2017-07-25] MEDS: CLOPIDOGREL 75MG TABLET PO SCH (09:04)
[2017-07-25] MEDS: CARVEDILOL 25MG TABLET PO SCH ×2 (09:04→22:16)
[2017-07-25] MEDS: ENOXAPARIN 30MG/0.3ML SYR SUBCUT SCH (09:05)
[2017-07-25] MEDS: DOCUSATE SODIUM 100MG CAPSULE PO SCH ×2 (09:26→17:24)
[2017-07-25 12:00] VITALS: BP 130/70
[2017-07-25] MEDS: SODIUM CHLORIDE 0.9% 1,000 ML IV SCH (12:56)
[2017-07-25 15:47] LABS: PHOSPHORUS 3.4 mg/dL (2.5-4.9)
[2017-07-25 15:50] LABS: HEMATOCRIT. 41.9 % (42.0-52.0); HEMOGLOBIN. 13.9 g/dL (14.0-18.0); MEAN CORPUSCULAR HEMOGLOBIN 27.7 pg (28.0-32.0); MEAN CORPUSCULAR VOLUME 83.2 fL (80.0-94.0); MEAN PLATELET VOLUME 10.1 fl (7.4-10.4); PLATELET 287 x1000/uL (130-400); RED BLOOD CELL COUNT 5.03 mill/uL (4.7-6.1); RED CELL DISTRIBUTION WIDTH 14.5 % (11.6-14.6)
[2017-07-25 16:00] VITALS: BP 130/99
[2017-07-25 17:03] LABS: PLATELET ESTIMATE NORMAL
[2017-07-25 20:00] VITALS: BP 146/86
[2017-07-25] MEDS: POLYETHYLENE GLYCOL 3350 (17GM) 1 DOSE PACK PO SCH (22:16)
[2017-07-26] VITALS: BP 152/75
[2017-07-26 04:00] VITALS: BP 162/91
[2017-07-26] MEDS: SODIUM CHLORIDE 0.9% 1,000 ML IV SCH ×2 (04:27→17:54)
[2017-07-26] MEDS: LEVOTHYROXINE SODIUM 25MCG TABLET PO SCH (07:32)
[2017-07-26 08:00] VITALS: BP 194/102
[2017-07-26] MEDS: BISACODYL 10MG SUPP PR SCH (09:00)
[2017-07-26] MEDS: CLOPIDOGREL 75MG TABLET PO SCH (09:05)
[2017-07-26] MEDS: DOCUSATE SODIUM 100MG CAPSULE PO SCH ×2 (09:05→17:00)
[2017-07-26] MEDS: TAMSULOSIN HCL 0.4MG SR CAPSULE PO SCH (09:06)
[2017-07-26] MEDS: ZINC SULFATE 220 MG ( 50 ) CAPSULE PO SCH (09:06)
[2017-07-26] MEDS: CARVEDILOL 25MG TABLET PO SCH ×2 (09:07→22:00)
[2017-07-26] MEDS: LACTULOSE 20G/30ML UDC PO SCH ×3 (09:07→17:00)
[2017-07-26] MEDS: LISINOPRIL 40MG TABLET PO SCH ×2 (09:07→21:59)
[2017-07-26] MEDS: ENOXAPARIN 30MG/0.3ML SYR SUBCUT SCH (09:12)
[2017-07-26] MEDS: CLONIDINE 0.1MG TABLET PO SCH ×2 (09:13→21:59)
[2017-07-26 12:00] VITALS: BP 159/79
[2017-07-26 16:00] VITALS: BP 191/110
[2017-07-26] MEDS: CLONIDINE 0.1MG TABLET PO PRN (17:55)
[2017-07-26 20:00] VITALS: BP 168/77
[2017-07-26] MEDS: POLYETHYLENE GLYCOL 3350 (17GM) 1 DOSE PACK PO SCH (21:58)
[2017-07-27] VITALS (16 sets, daily range): BP systolic 134–243; BP diastolic 78–125
[2017-07-27] MEDS: LEVOTHYROXINE SODIUM 25MCG TABLET PO SCH (07:33)
[2017-07-27] MEDS: ZINC SULFATE 220 MG ( 50 ) CAPSULE PO SCH (08:49)
[2017-07-27] MEDS: LISINOPRIL 40MG TABLET PO SCH ×2 (08:50→20:43)
[2017-07-27] MEDS: CARVEDILOL 25MG TABLET PO SCH ×2 (08:50→20:43)
[2017-07-27] MEDS: TAMSULOSIN HCL 0.4MG SR CAPSULE PO SCH (08:50)
[2017-07-27] MEDS: CLOPIDOGREL 75MG TABLET PO SCH (08:50)
[2017-07-27] MEDS: CLONIDINE 0.1MG TABLET PO SCH ×2 (08:51→20:43)
[2017-07-27] MEDS: ENOXAPARIN 30MG/0.3ML SYR SUBCUT SCH (08:59)
[2017-07-27] MEDS: DOCUSATE SODIUM 100MG CAPSULE PO SCH ×2 (09:00→17:00)
[2017-07-27] MEDS: BISACODYL 10MG SUPP PR SCH (09:00)
[2017-07-27] MEDS: LACTULOSE 20G/30ML UDC PO SCH ×3 (13:00→20:43)
[2017-07-27] MEDS: CLONIDINE 0.1MG TABLET PO PRN (17:35)
[2017-07-27] MEDS: POLYETHYLENE GLYCOL 3350 (17GM) 1 DOSE PACK PO SCH (20:44)
[2017-07-27] MEDS: NITROGLYCERIN 50MG PREMIX 250 ML IV PRN (21:44)
[2017-07-28] VITALS (83 sets, daily range): BP systolic 145–223; BP diastolic 63–142
[2017-07-28] MEDS: NITROGLYCERIN 50MG PREMIX 250 ML IV PRN ×5 (02:43→17:00)
[2017-07-28] MEDS: CLONIDINE 0.1MG TABLET PO PRN ×2 (03:52→16:55)
[2017-07-28] MEDS ORDERED: FUROSEMIDE 40MG/4ML VIAL IVP SCH (06:30)
[2017-07-28] MEDS: LEVOTHYROXINE SODIUM 25MCG TABLET PO SCH (06:52)
[2017-07-28] MEDS: CLONIDINE 0.1MG TABLET PO SCH ×4 (08:33→22:46)
[2017-07-28] MEDS: CARVEDILOL 25MG TABLET PO SCH ×2 (08:34→21:17)
[2017-07-28] MEDS: TAMSULOSIN HCL 0.4MG SR CAPSULE PO SCH (08:35)
[2017-07-28] MEDS: CLOPIDOGREL 75MG TABLET PO SCH (08:35)
[2017-07-28] MEDS: ZINC SULFATE 220 MG ( 50 ) CAPSULE PO SCH (08:36)
[2017-07-28] MEDS: ENOXAPARIN 30MG/0.3ML SYR SUBCUT SCH (08:36)
[2017-07-28] MEDS: LISINOPRIL 40MG TABLET PO SCH ×2 (08:36→21:17)
[2017-07-28] MEDS: BISACODYL 10MG SUPP PR SCH (09:00)
[2017-07-28] MEDS: DOCUSATE SODIUM 100MG CAPSULE PO SCH ×2 (09:00→16:50)
[2017-07-28] MEDS ORDERED: LORAZEPAM 2MG/ML CPJ IM PRN (10:00)
[2017-07-28] MEDS ORDERED: ONDANSETRON HCL 4MG/2ML VIAL IV PRN (10:00)
[2017-07-28] MEDS: HYDRALAZINE 20MG/ML VIAL IV PRN ×3 (10:15→22:46)
[2017-07-28 11:58] LABS: BASOPHILS % 0.3 % (0.0-2.0); EOSINOPHILS % 4.1 % (0.0-5.0); HEMATOCRIT. 39.6 % (42.0-52.0); HEMOGLOBIN. 13.4 g/dL (14.0-18.0); LYMPHOCYTES % 9.6 % (20.0-50.0); MEAN CORPUSCULAR VOLUME 82.6 fL (80.0-94.0); MEAN PLATELET VOLUME 9.8 fl (7.4-10.4); MONOCYTES % 13.2 % (2.0-8.0); NEUTROPHILS % 72.8 % (40.0-76.0); PLATELET 277 x1000/uL (130-400); RED BLOOD CELL COUNT 4.79 mill/uL (4.7-6.1); RED CELL DISTRIBUTION WIDTH 14.5 % (11.6-14.6)
[2017-07-28 12:29] LABS: CARBON DIOXIDE 21 mEq/L (21-32); CHLORIDE 107 mEq/L (98-107); CREATINE KINASE MB FRACTION 1.9 ng/mL (0.5-3.6); TROPONIN I < 0.02 ng/mL (0.00-0.04)
[2017-07-28] MEDS: POLYETHYLENE GLYCOL 3350 (17GM) 1 DOSE PACK PO SCH (21:00)
[2017-07-29] VITALS (63 sets, daily range): BP systolic 137–186; BP diastolic 67–126
[2017-07-29 05:17] LABS: HEMATOCRIT. 39.7 % (42.0-52.0); HEMOGLOBIN. 13.5 g/dL (14.0-18.0); MEAN CORPUSCULAR HEMOGLOBIN 27.9 pg (28.0-32.0); MEAN CORPUSCULAR VOLUME 81.9 fL (80.0-94.0); MEAN PLATELET VOLUME 9.6 fl (7.4-10.4); PLATELET 262 x1000/uL (130-400); RED BLOOD CELL COUNT 4.85 mill/uL (4.7-6.1); RED CELL DISTRIBUTION WIDTH 14.4 % (11.6-14.6)
[2017-07-29] MEDS: CLONIDINE 0.1MG TABLET PO SCH ×3 (05:54→21:44)
[2017-07-29] MEDS: LEVOTHYROXINE SODIUM 25MCG TABLET PO SCH (05:54)
[2017-07-29] MEDS: BISACODYL 10MG SUPP PR SCH (09:00)
[2017-07-29] MEDS: TAMSULOSIN HCL 0.4MG SR CAPSULE PO SCH (09:03)
[2017-07-29] MEDS: CARVEDILOL 25MG TABLET PO SCH ×2 (09:04→20:42)
[2017-07-29] MEDS: DOCUSATE SODIUM 100MG CAPSULE PO SCH ×2 (09:04→17:05)
[2017-07-29] MEDS: CLOPIDOGREL 75MG TABLET PO SCH (09:04)
[2017-07-29] MEDS: ZINC SULFATE 220 MG ( 50 ) CAPSULE PO SCH (09:04)
[2017-07-29] MEDS: LISINOPRIL 40MG TABLET PO SCH ×2 (09:05→20:42)
[2017-07-29] MEDS: ENOXAPARIN 30MG/0.3ML SYR SUBCUT SCH (09:05)
[2017-07-29 10:40] LABS: PLATELET ESTIMATE NORMAL
[2017-07-29] MEDS: HYDRALAZINE 20MG/ML VIAL IV PRN (11:34)
[2017-07-29] MEDS: HYDRALAZINE HCL 50MG TABLET PO SCH ×2 (14:00→21:44)
[2017-07-29] MEDS: POLYETHYLENE GLYCOL 3350 (17GM) 1 DOSE PACK PO SCH (20:42)
[2017-07-30] VITALS (15 sets, daily range): BP systolic 142–179; BP diastolic 64–105
[2017-07-30] MEDS: HYDRALAZINE HCL 50MG TABLET PO SCH ×2 (05:06→13:54)
[2017-07-30] MEDS: CLONIDINE 0.1MG TABLET PO SCH ×2 (05:06→13:54)
[2017-07-30] MEDS ORDERED: LEVOTHYROXINE SODIUM 50MCG TABLET PO SCH (06:30)
[2017-07-30 08:51] LABS: HEMATOCRIT. 41.7 % (42.0-52.0); MEAN CORPUSCULAR HEMOGLOBIN 27.8 pg (28.0-32.0); MEAN CORPUSCULAR VOLUME 82.8 fL (80.0-94.0); PLATELET 257 x1000/uL (130-400); RED BLOOD CELL COUNT 5.04 mill/uL (4.7-6.1); RED CELL DISTRIBUTION WIDTH 14.9 % (11.6-14.6)
[2017-07-30] MEDS: BISACODYL 10MG SUPP PR SCH (09:00)
[2017-07-30] MEDS: LISINOPRIL 40MG TABLET PO SCH (09:14)
[2017-07-30] MEDS: DOCUSATE SODIUM 100MG CAPSULE PO SCH ×2 (09:14→17:00)
[2017-07-30] MEDS: ZINC SULFATE 220 MG ( 50 ) CAPSULE PO SCH (09:14)
[2017-07-30] MEDS: TAMSULOSIN HCL 0.4MG SR CAPSULE PO SCH (09:15)
[2017-07-30] MEDS: CLOPIDOGREL 75MG TABLET PO SCH (09:15)
[2017-07-30] MEDS: CARVEDILOL 25MG TABLET PO SCH (09:15)
[2017-07-30] MEDS: ENOXAPARIN 30MG/0.3ML SYR SUBCUT SCH (09:15)
[2017-07-30 16:26] LABS: PLATELET ESTIMATE NORMAL
[2017-07-30] MEDS: CLONIDINE 0.1MG TABLET PO PRN (17:11)
[2017-07-30] MEDS: HYDRALAZINE 20MG/ML VIAL IV PRN (17:19)
[2017-07-31] MEDS ORDERED: ENOXAPARIN 40MG/0.4ML SYR SUBCUT SCH (09:00)
== END 2017-07-30 17:40 | disposition home health service (06) | DRG 280 ==
LOC: 6EST 20:00 → MICUNO 07-27 20:16 → 5EST 07-29 21:24
PROVIDERS: ADMIT Internal Medicine Nephrology; ATTEND Internal Medicine Nephrology
DX: I13.0 Hypertensive heart and chronic kidney disease with heart failure and stage 1 through stage 4 chronic kidney disease, or unspecified chronic kidney disease (principal); N17.0 Acute kidney failure with tubular necrosis; I21.4 Non-ST elevation (NSTEMI) myocardial infarction; E43 Unspecified severe protein-calorie malnutrition; G82.50 Quadriplegia, unspecified; E87.1 Hypo-osmolality and hyponatremia; N10 Acute pyelonephritis; I50.33 Acute on chronic diastolic (congestive) heart failure; Z68.41 Body mass index [BMI] 40.0-44.9, adult; L97.919 Non-pressure chronic ulcer of unspecified part of right lower leg with unspecified severity; G81.94 Hemiplegia, unspecified affecting left nondominant side; I42.9 Cardiomyopathy, unspecified; E66.01 Morbid (severe) obesity due to excess calories; D64.9 Anemia, unspecified; E03.9 Hypothyroidism, unspecified; E11.22 Type 2 diabetes mellitus with diabetic chronic kidney disease; E11.622 Type 2 diabetes mellitus with other skin ulcer; E11.65 Type 2 diabetes mellitus with hyperglycemia; F10.20 Alcohol dependence, uncomplicated; I16.0 Hypertensive urgency; I27.2 Other secondary pulmonary hypertension; N18.9 Chronic kidney disease, unspecified; N40.0 Benign prostatic hyperplasia without lower urinary tract symptoms; Z68.35 Body mass index [BMI] 35.0-35.9, adult
CPT/HCPCS: 36415; 80048; 80053; 81001; 82553; 82962; 83735; 84100; 84153; 84443; 84484; 85007; 85025; 85027; 92523; 92610; 93005; 97112; 97116; 97162; 97164; 97167; 97530; 97532; J0360; J1650; J1940; J1956; J2405; J2930; J3490; J7030; Q0162; A4315

== ENCOUNTER 2018-01-17 12:49 | Inpatient (IN) | payer OTHER ==
[~2018-01-17] VITALS: Ht 172.7 cm; Wt 136.1 kg
[2018-01-17 16:42] LABS: BASOPHILS % 0.9 % (0.0-2.0); EOSINOPHILS % 0.9 % (0.0-5.0); HEMATOCRIT. 47.5 % (42.0-52.0); HEMOGLOBIN. 16.3 g/dL (14.0-18.0); LYMPHOCYTES % 20.4 % (20.0-50.0); MEAN CORPUSCULAR HEMOGLOBIN 28.5 pg (28.0-32.0); MEAN PLATELET VOLUME 9.2 fl (7.4-10.4); MONOCYTES % 9.6 % (2.0-8.0); NEUTROPHILS % 68.2 % (40.0-76.0); PLATELET 217 x1000/uL (130-400); RED BLOOD CELL COUNT 5.72 mill/uL (4.7-6.1); RED CELL DISTRIBUTION WIDTH 13.4 % (11.6-14.6)
[2018-01-17 16:47] LABS: CHLORIDE 102 mEq/L (98-107); INR 1.1; PARTIAL THROMBOPLASTIN TIME 26.6 sec (23.4-31.0); PROTHROMBIN TIME 11.4 sec (9.4-11.6)
[2018-01-17 16:57] LABS: CREATINE KINASE MB FRACTION 1.2 ng/mL (0.5-3.6); TROPONIN I < 0.02 ng/mL (0.00-0.04)
[2018-01-17] MEDS ORDERED: SODIUM CHLORIDE 0.9% 1,000 ML IV ONE (19:29)
[2018-01-17] MEDS ORDERED: LABETALOL 5MG/ML SYR 20 MG/4 ML SYRINGE IV ONE (19:45)
[2018-01-17] MEDS ORDERED: LISINOPRIL 20MG TABLET PO ONE (19:45)
[2018-01-18 04:49] VITALS: BP 177/93
[2018-01-18 08:00] VITALS: BP 177/96
[2018-01-18 12:00] VITALS: BP 167/76
[2018-01-18] MEDS ORDERED: CLOP75TA33 PO (12:17)
[2018-01-18] MEDS ORDERED: AMLO10TA80 PO (12:17)
[2018-01-18] MEDS ORDERED: LISI40TA4 PO (12:17)
[2018-01-18] MEDS ORDERED: FURO-151 PO (12:17)
[2018-01-18] MEDS ORDERED: CARV25TA47 PO (12:17)
[2018-01-18] MEDS ORDERED: LEVO25TA7 PO (12:19)
[2018-01-18] MEDS ORDERED: ONDANSETRON HCL 4MG/2ML VIAL IV PRN (13:00)
[2018-01-18] MEDS ORDERED: MAGNESIUM/ALUMINUM HYDROXIDE/SIMETHICONE 30ML UDC PO PRN (13:00)
[2018-01-18] MEDS ORDERED: GUAIFENESIN 200MG/10ML SUGAR FREE UDC PO PRN (13:00)
[2018-01-18] MEDS ORDERED: IPRATROPIUM/ALBUTEROL 0.5-3(2.5)MG/3ML NEB INH PRN (13:00)
[2018-01-18] MEDS ORDERED: TRAMADOL 50MG TABLET PO PRN (13:00)
[2018-01-18] MEDS ORDERED: DIPHENHYDRAMINE 50MG/ML VIAL IV PRN (13:00)
[2018-01-18] MEDS ORDERED: ACETAMINOPHEN 325MG TABLET PO PRN (13:00)
[2018-01-18] MEDS ORDERED: DOCUSATE SODIUM 100MG CAPSULE PO PRN (13:00)
[2018-01-18] MEDS ORDERED: NA PHOS,M-B/NA PHOS,DI-BA ENEMA 118ML PR PRN (13:00)
[2018-01-18] MEDS: LEVOTHYROXINE SODIUM 25MCG TABLET PO SCH (15:08)
[2018-01-18] MEDS: AMLODIPINE 10MG TABLET PO SCH (15:08)
[2018-01-18] MEDS: CLOPIDOGREL 75MG TABLET PO SCH (15:08)
[2018-01-18] MEDS: ASPIRIN 325MG EC TABLET PO SCH (15:09)
[2018-01-18] MEDS: LISINOPRIL 40MG TABLET PO SCH (15:09)
[2018-01-18] MEDS: PANTOPRAZOLE SODIUM 40 MG/VIAL IV SCH (15:09)
[2018-01-18] MEDS: FUROSEMIDE 40MG TABLET PO SCH (15:09)
[2018-01-18] MEDS: ENOXAPARIN 40MG/0.4ML SYR SUBCUT SCH ×2 (15:10→21:44)
[2018-01-18 16:00] VITALS: BP 195/96
[2018-01-18 16:29] LABS: CREATINE KINASE 103 IU/L (39-308); HDL CHOLESTEROL 36 mg/dL (40-59); LDL CHOLESTEROL 106 mg/dL (5-100); TROPONIN I < 0.02 ng/mL (0.00-0.04)
[2018-01-18] MEDS: HYDRALAZINE HCL 50MG TABLET PO SCH (17:40)
[2018-01-18 18:55] VITALS: BP 158/77
[2018-01-18 19:21] LABS: CLARITY URINE CLEAR (CLEAR); COLOR URINE YELLOW (YELLOW); KETONES URINE NEGATIVE (NEGATIVE); LEUKOCYTE ESTERASE URINE 1+ (NEGATIVE); NITRITE URINE NEGATIVE (NEGATIVE); OCCULT BLOOD URINE NEGATIVE (NEGATIVE); PH URINE 8.5 (4.5-8.0); PROTEIN URINE NEGATIVE (NEGATIVE); SPECIFIC GRAVITY URINE 1.012 (1.005-1.030)
[2018-01-18 19:42] LABS: *AMPHETAMINES SCREEN URINE NEGATIVE (NEGATIVE); *BARBITURATES SCREEN URINE NEGATIVE (NEGATIVE); *BENZODIAZEPINES SCREEN URINE NEGATIVE (NEGATIVE); *COCAINE SCREEN URINE NEGATIVE (NEGATIVE); CANNABINOID URINE SCREEN NEGATIVE (NEGATIVE); METHADONE URINE SCREEN NEGATIVE (NEGATIVE); OPIATES URINE SCREEN NEGATIVE (NEGATIVE); PHENCYCLIDINE URINE SCREEN NEGATIVE (NEGATIVE)
[2018-01-18 20:00] VITALS: BP 144/73
[2018-01-18] MEDS ORDERED: ZOLPIDEM TARTRATE 5MG TABLET PO PRN (21:00)
[2018-01-18] MEDS: CARVEDILOL 25MG TABLET PO SCH (21:44)
[2018-01-18] MEDS: ATORVASTATIN CALCIUM 10MG TABLET PO SCH (21:45)
[2018-01-19] VITALS: BP 141/76
[2018-01-19] MEDS: HYDRALAZINE HCL 50MG TABLET PO SCH ×4 (01:23→21:00)
[2018-01-19 04:00] VITALS: BP 125/83
[2018-01-19] MEDS: LEVOTHYROXINE SODIUM 25MCG TABLET PO SCH (06:42)
[2018-01-19 08:00] VITALS: BP 118/67
[2018-01-19] MEDS: CLOPIDOGREL 75MG TABLET PO SCH (09:02)
[2018-01-19] MEDS: CARVEDILOL 25MG TABLET PO SCH ×2 (09:02→21:00)
[2018-01-19] MEDS: PANTOPRAZOLE SODIUM 40 MG/VIAL IV SCH (09:02)
[2018-01-19] MEDS: AMLODIPINE 10MG TABLET PO SCH (09:02)
[2018-01-19] MEDS: ASPIRIN 325MG EC TABLET PO SCH (09:03)
[2018-01-19] MEDS: ENOXAPARIN 40MG/0.4ML SYR SUBCUT SCH ×2 (09:03→21:00)
[2018-01-19] MEDS: FUROSEMIDE 40MG TABLET PO SCH (09:03)
[2018-01-19] MEDS: LISINOPRIL 40MG TABLET PO SCH (09:03)
[2018-01-19 09:42] LABS: CREATINE KINASE 75 IU/L (39-308); CREATINE KINASE MB FRACTION 1.2 ng/mL (0.5-3.6); TROPONIN I < 0.02 ng/mL (0.00-0.04)
[2018-01-19 12:00] VITALS: BP 112/70
[2018-01-19 16:00] VITALS: BP 136/74
[2018-01-19 20:00] VITALS: BP 119/78
[2018-01-19] MEDS: ATORVASTATIN CALCIUM 10MG TABLET PO SCH (21:00)
[2018-01-20] VITALS: BP 117/68
[2018-01-20 04:00] VITALS: BP 120/62
[2018-01-20] MEDS: HYDRALAZINE HCL 50MG TABLET PO SCH ×3 (06:28→21:20)
[2018-01-20] MEDS: LEVOTHYROXINE SODIUM 25MCG TABLET PO SCH (06:28)
[2018-01-20 08:00] VITALS: BP 97/37
[2018-01-20] MEDS: FAMOTIDINE 20MG TABLET PO SCH ×2 (08:45→21:19)
[2018-01-20] MEDS: ENOXAPARIN 40MG/0.4ML SYR SUBCUT SCH ×2 (08:46→21:20)
[2018-01-20] MEDS: CLOPIDOGREL 75MG TABLET PO SCH (08:46)
[2018-01-20] MEDS: FUROSEMIDE 40MG TABLET PO SCH (08:46)
[2018-01-20] MEDS: ASPIRIN 325MG EC TABLET PO SCH (08:46)
[2018-01-20] MEDS: AMLODIPINE 10MG TABLET PO SCH (08:47)
[2018-01-20] MEDS: CARVEDILOL 25MG TABLET PO SCH ×2 (08:47→21:20)
[2018-01-20] MEDS: LISINOPRIL 40MG TABLET PO SCH (08:48)
[2018-01-20 12:00] VITALS: BP 130/69
[2018-01-20 13:50] LABS: ETHANOL BLOOD < 10 mg/dL
[2018-01-20 14:02] LABS: HDL CHOLESTEROL 29 mg/dL (40-59); LDL CHOLESTEROL 98 mg/dL (5-100); T4 FREE 1.44 ng/dL (0.76-1.46)
[2018-01-20 14:11] LABS: FOLIC ACID (FOLATE) SERUM 14.5 ng/mL (>5.38)
[2018-01-20 16:00] VITALS: BP 135/81
[2018-01-20 20:00] VITALS: BP 129/65
[2018-01-20] MEDS: ATORVASTATIN CALCIUM 10MG TABLET PO SCH (21:19)
[2018-01-21] VITALS: BP 103/46
[2018-01-21 04:00] VITALS: BP 106/63
[2018-01-21] MEDS: HYDRALAZINE HCL 50MG TABLET PO SCH ×3 (05:01→22:42)
[2018-01-21] MEDS: LEVOTHYROXINE SODIUM 25MCG TABLET PO SCH (06:33)
[2018-01-21 08:00] VITALS: BP 123/55
[2018-01-21] MEDS: CLOPIDOGREL 75MG TABLET PO SCH (10:58)
[2018-01-21] MEDS: LISINOPRIL 40MG TABLET PO SCH (10:58)
[2018-01-21] MEDS: AMLODIPINE 10MG TABLET PO SCH (10:59)
[2018-01-21] MEDS: ASPIRIN 325MG EC TABLET PO SCH (10:59)
[2018-01-21] MEDS: CARVEDILOL 25MG TABLET PO SCH ×2 (10:59→20:25)
[2018-01-21] MEDS: FUROSEMIDE 40MG TABLET PO SCH (10:59)
[2018-01-21] MEDS: FAMOTIDINE 20MG TABLET PO SCH ×2 (11:09→20:25)
[2018-01-21 12:00] VITALS: BP_SYST 131; BP_SYST 145; BP_DIAS 67; BP_DIAS 74
[2018-01-21] MEDS: ENOXAPARIN 40MG/0.4ML SYR SUBCUT SCH ×2 (13:11→20:26)
[2018-01-21 16:00] VITALS: BP 127/61
[2018-01-21 20:07] VITALS: BP 130/66
[2018-01-21] MEDS: ATORVASTATIN CALCIUM 10MG TABLET PO SCH (20:25)
[2018-01-22 00:07] VITALS: BP 110/56
[2018-01-22 04:00] VITALS: BP 109/67
[2018-01-22] MEDS: HYDRALAZINE HCL 50MG TABLET PO SCH ×2 (06:00→14:56)
[2018-01-22] MEDS: LEVOTHYROXINE SODIUM 25MCG TABLET PO SCH (06:07)
[2018-01-22 08:00] VITALS: BP 116/70
[2018-01-22] MEDS: CLOPIDOGREL 75MG TABLET PO SCH (08:58)
[2018-01-22] MEDS: ENOXAPARIN 40MG/0.4ML SYR SUBCUT SCH (08:58)
[2018-01-22] MEDS: AMLODIPINE 10MG TABLET PO SCH (08:58)
[2018-01-22] MEDS: ASPIRIN 325MG EC TABLET PO SCH (08:59)
[2018-01-22] MEDS: LISINOPRIL 40MG TABLET PO SCH (08:59)
[2018-01-22] MEDS: FUROSEMIDE 40MG TABLET PO SCH (08:59)
[2018-01-22] MEDS: FAMOTIDINE 20MG TABLET PO SCH (08:59)
[2018-01-22] MEDS: CARVEDILOL 25MG TABLET PO SCH (08:59)
[2018-01-22 09:54] LABS: BASOPHILS % 0.9 % (0.0-2.0); EOSINOPHILS % 4.1 % (0.0-5.0); HEMATOCRIT. 43.3 % (42.0-52.0); LYMPHOCYTES % 19.3 % (20.0-50.0); MEAN CORPUSCULAR HEMOGLOBIN 28.7 pg (28.0-32.0); MEAN CORPUSCULAR VOLUME 82.9 fL (80.0-94.0); MEAN PLATELET VOLUME 9.3 fl (7.4-10.4); MONOCYTES % 12.9 % (2.0-8.0); NEUTROPHILS % 62.8 % (40.0-76.0); PLATELET 194 x1000/uL (130-400); RED BLOOD CELL COUNT 5.22 mill/uL (4.7-6.1); RED CELL DISTRIBUTION WIDTH 13.1 % (11.6-14.6)
[2018-01-22 12:00] VITALS: BP 137/78
[2018-01-22 13:19] VITALS: BP 138/93
[2018-01-22 16:31] VITALS: BP 132/79
[2018-01-23] MEDS ORDERED: FAMOTIDINE 20MG TABLET PO SCH (09:00)
[2018-01-23] MEDS ORDERED: ENOXAPARIN 40MG/0.4ML SYR SUBCUT SCH (09:00)
== END 2018-01-22 16:31 | DRG 64 ==
LOC: ER 13:59 → 5WST 19:28 → EDBEDREQ 19:38 → ENRESERV 01-18 03:24
PROVIDERS: ADMIT Internal Medicine; ATTEND Internal Medicine
DX: I63.9 Cerebral infarction, unspecified (principal); N17.0 Acute kidney failure with tubular necrosis; G81.91 Hemiplegia, unspecified affecting right dominant side; R47.01 Aphasia; R13.10 Dysphagia, unspecified; I42.9 Cardiomyopathy, unspecified; I16.1 Hypertensive emergency; J44.9 Chronic obstructive pulmonary disease, unspecified; R26.9 Unspecified abnormalities of gait and mobility; R47.1 Dysarthria and anarthria; E03.9 Hypothyroidism, unspecified; E78.00 Pure hypercholesterolemia, unspecified; I10 Essential (primary) hypertension; I25.2 Old myocardial infarction; Z79.82 Long term (current) use of aspirin; Z82.3 Family history of stroke; Z91.14 Patient's other noncompliance with medication regimen
CPT/HCPCS: 36415; 70450; 70544; 70551; 71045; 80048; 80053; 80061; 80305; 81003; 82550; 82553; 82607; 82746; 83036; 83735; 83880; 84439; 84443; 84481; 84484; 85025; 85610; 85730; 92523; 92610; 93005; 93306; 93880; 93970; 96361; 96374; 97110; 97116; 97161; 97166; 97530; 97535; 99291; C1893; C9113; G0482; J1650; J3490; J7030

== ENCOUNTER 2018-01-22 16:40 | Inpatient (IN) | payer OTHER ==
[~2018-01-22] VITALS: Ht 172.7 cm; Wt 136.1 kg
[~2018-01-22 16:40] MED LIST changes: -ACET1TAB12 PO; -ALLO300T2 PO; -AMLO10TA4 PO; +AMLO10TA80 PO; +CARV25TA47 PO; +CLOP75TA33 PO; -COLC0.6T66 PO; -DICL75TA5 PO; +FURO-151 PO; -FURO40TA5 PO; +LEVO25TA7 PO; +LISI40TA4 PO; -OLME40TA12 PO; -PERINDOPRIL PO; -POTA10TA15 PO
[2018-01-22 17:14] VITALS: BP 121/64
[2018-01-22] MEDS ORDERED: IPRATROPIUM/ALBUTEROL 0.5-3(2.5)MG/3ML NEB HHN PRN (17:30)
[2018-01-22] MEDS ORDERED: GUAIFENESIN 200MG/10ML SUGAR FREE UDC PO PRN (17:30)
[2018-01-22] MEDS ORDERED: MAGNESIUM/ALUMINUM HYDROXIDE/SIMETHICONE 30ML UDC PO PRN (17:30)
[2018-01-22] MEDS ORDERED: DOCUSATE SODIUM 100MG CAPSULE PO PRN (17:30)
[2018-01-22] MEDS ORDERED: ZOLPIDEM TARTRATE 5MG TABLET PO PRN (17:30)
[2018-01-22] MEDS ORDERED: ACETAMINOPHEN 325MG TABLET PO PRN (17:30)
[2018-01-22] MEDS ORDERED: DIPHENHYDRAMINE 25MG CAPSULE PO PRN (17:30)
[2018-01-22 17:58] VITALS: BP 121/64
[2018-01-22 20:00] VITALS: BP 108/62
[2018-01-22] MEDS ORDERED: NA PHOS,M-B/NA PHOS,DI-BA ENEMA 118ML PR PRN (21:00)
[2018-01-22] MEDS: CARVEDILOL 25MG TABLET PO SCH (21:00)
[2018-01-22] MEDS: HYDRALAZINE HCL 50MG TABLET PO SCH (21:44)
[2018-01-22] MEDS: ATORVASTATIN CALCIUM 10MG TABLET PO SCH (21:47)
[2018-01-23] MEDS: HYDRALAZINE HCL 50MG TABLET PO SCH ×3 (06:00→21:16)
[2018-01-23] MEDS: LEVOTHYROXINE SODIUM 25MCG TABLET PO SCH (06:11)
[2018-01-23 08:00] VITALS: BP 123/51
[2018-01-23 08:24] LABS: BASOPHILS % 0.9 % (0.0-2.0); EOSINOPHILS % 5.5 % (0.0-5.0); HEMATOCRIT. 42.3 % (42.0-52.0); HEMOGLOBIN. 14.3 g/dL (14.0-18.0); LYMPHOCYTES % 18.3 % (20.0-50.0); MEAN CORPUSCULAR HEMOGLOBIN 28.2 pg (28.0-32.0); MEAN CORPUSCULAR VOLUME 83.3 fL (80.0-94.0); MEAN PLATELET VOLUME 9.8 fl (7.4-10.4); MONOCYTES % 13.8 % (2.0-8.0); NEUTROPHILS % 61.5 % (40.0-76.0); PLATELET 205 x1000/uL (130-400); RED BLOOD CELL COUNT 5.08 mill/uL (4.7-6.1); RED CELL DISTRIBUTION WIDTH 13.2 % (11.6-14.6)
[2018-01-23] MEDS ORDERED: FUROSEMIDE 40MG TABLET PO SCH (09:00)
[2018-01-23] MEDS ORDERED: LISINOPRIL 40MG TABLET PO SCH (09:00)
[2018-01-23] MEDS: ENOXAPARIN 40MG/0.4ML SYR SUBCUT SCH (09:17)
[2018-01-23] MEDS: CLOPIDOGREL 75MG TABLET PO SCH (09:18)
[2018-01-23] MEDS: FAMOTIDINE 20MG TABLET PO SCH (09:18)
[2018-01-23] MEDS: CARVEDILOL 25MG TABLET PO SCH ×2 (09:20→21:00)
[2018-01-23] MEDS: ASPIRIN 325MG EC TABLET PO SCH (09:20)
[2018-01-23] MEDS: AMLODIPINE 10MG TABLET PO SCH (09:20)
[2018-01-23 09:29] LABS: CHLORIDE 103 mEq/L (98-107)
[2018-01-23 09:41] LABS: PREALBUMIN 26.6 mg/dL (20.0-40.0)
[2018-01-23 20:00] VITALS: BP 110/63
[2018-01-23] MEDS: ATORVASTATIN CALCIUM 10MG TABLET PO SCH (21:16)
[2018-01-24] MEDS: LEVOTHYROXINE SODIUM 25MCG TABLET PO SCH (06:31)
[2018-01-24] MEDS: HYDRALAZINE HCL 50MG TABLET PO SCH ×3 (06:31→22:00)
[2018-01-24 08:32] VITALS: BP 138/72
[2018-01-24] MEDS: CARVEDILOL 25MG TABLET PO SCH ×2 (09:36→21:00)
[2018-01-24] MEDS: CLOPIDOGREL 75MG TABLET PO SCH (09:36)
[2018-01-24] MEDS: AMLODIPINE 10MG TABLET PO SCH (09:36)
[2018-01-24] MEDS: ASPIRIN 325MG EC TABLET PO SCH (09:37)
[2018-01-24] MEDS: ENOXAPARIN 40MG/0.4ML SYR SUBCUT SCH (09:37)
[2018-01-24] MEDS: FAMOTIDINE 20MG TABLET PO SCH (09:37)
[2018-01-24] MEDS: TAMSULOSIN HCL 0.4MG SR CAPSULE PO SCH (14:23)
[2018-01-24 15:12] LABS: BASOPHILS % 0.9 % (0.0-2.0); EOSINOPHILS % 3.3 % (0.0-5.0); HEMOGLOBIN. 14.9 g/dL (14.0-18.0); LYMPHOCYTES % 16.9 % (20.0-50.0); MEAN CORPUSCULAR HEMOGLOBIN 28.7 pg (28.0-32.0); MEAN CORPUSCULAR VOLUME 82.7 fL (80.0-94.0); MEAN PLATELET VOLUME 9.7 fl (7.4-10.4); MONOCYTES % 12.4 % (2.0-8.0); NEUTROPHILS % 66.5 % (40.0-76.0); PLATELET 235 x1000/uL (130-400); RED CELL DISTRIBUTION WIDTH 13.1 % (11.6-14.6)
[2018-01-24 17:20] LABS: CLARITY URINE TURBID (CLEAR); COLOR URINE YELLOW (YELLOW); KETONES URINE TRACE (NEGATIVE); LEUKOCYTE ESTERASE URINE 3+ (NEGATIVE); NITRITE URINE NEGATIVE (NEGATIVE); OCCULT BLOOD URINE TRACE (NEGATIVE); PROTEIN URINE 2+ (NEGATIVE)
[2018-01-24] MEDS: LACTULOSE 20G/30ML UDC PO SCH (17:37)
[2018-01-24] MEDS: SODIUM CHLORIDE 0.9% 1,000 ML IV SCH (17:51)
[2018-01-24] MEDS ORDERED: ACETAMINOPHEN 325MG TABLET PO PRN (19:30)
[2018-01-24 20:00] VITALS: BP 116/62
[2018-01-24] MEDS: ATORVASTATIN CALCIUM 10MG TABLET PO SCH (22:05)
[2018-01-25] MEDS: LACTULOSE 20G/30ML UDC PO SCH ×2 (01:00→09:00)
[2018-01-25] MEDS: SODIUM CHLORIDE 0.9% 1,000 ML IV SCH ×2 (04:54→12:22)
[2018-01-25] MEDS: LEVOTHYROXINE SODIUM 25MCG TABLET PO SCH (06:41)
[2018-01-25] MEDS: HYDRALAZINE HCL 50MG TABLET PO SCH ×3 (06:42→22:00)
[2018-01-25 08:00] VITALS: BP 119/58
[2018-01-25 08:46] LABS: BASOPHILS % 1.1 % (0.0-2.0); EOSINOPHILS % 3.9 % (0.0-5.0); HEMATOCRIT. 41.6 % (42.0-52.0); HEMOGLOBIN. 14.1 g/dL (14.0-18.0); LYMPHOCYTES % 18.7 % (20.0-50.0); MEAN CORPUSCULAR HEMOGLOBIN 28.4 pg (28.0-32.0); MEAN CORPUSCULAR VOLUME 83.5 fL (80.0-94.0); MEAN PLATELET VOLUME 9.7 fl (7.4-10.4); NEUTROPHILS % 63.3 % (40.0-76.0); PLATELET 193 x1000/uL (130-400); RED BLOOD CELL COUNT 4.98 mill/uL (4.7-6.1); RED CELL DISTRIBUTION WIDTH 13.5 % (11.6-14.6)
[2018-01-25] MEDS: ENOXAPARIN 40MG/0.4ML SYR SUBCUT SCH (09:45)
[2018-01-25] MEDS: ASPIRIN 325MG EC TABLET PO SCH (09:47)
[2018-01-25] MEDS: CLOPIDOGREL 75MG TABLET PO SCH (09:47)
[2018-01-25] MEDS: FAMOTIDINE 20MG TABLET PO SCH (09:48)
[2018-01-25] MEDS: TAMSULOSIN HCL 0.4MG SR CAPSULE PO SCH (09:48)
[2018-01-25] MEDS: CARVEDILOL 25MG TABLET PO SCH ×2 (09:49→22:00)
[2018-01-25] MEDS: AMLODIPINE 10MG TABLET PO SCH (09:49)
[2018-01-25] MEDS: TRAMADOL 50MG TABLET PO PRN (09:56)
[2018-01-25 10:16] LABS: PHOSPHORUS 5.5 mg/dL (2.5-4.9)
[2018-01-25 10:30] LABS: PROSTRATE SPECIFIC AG TOTAL 1.42 ng/mL (0.0-4.0)
[2018-01-25] MEDS ORDERED: LEVOFLOXACIN 250MG TABLET PO NR (15:45)
[2018-01-25 17:10] LABS: FOLIC ACID (FOLATE) SERUM 9.4 ng/mL (>5.38)
[2018-01-25 20:00] VITALS: BP 109/56
[2018-01-25] MEDS: ATORVASTATIN CALCIUM 10MG TABLET PO SCH (22:49)
[2018-01-26] MEDS: SODIUM CHLORIDE 0.9% 1,000 ML IV SCH ×2 (04:00→19:54)
[2018-01-26] MEDS: HYDRALAZINE HCL 50MG TABLET PO SCH ×3 (07:02→21:52)
[2018-01-26] MEDS: LEVOTHYROXINE SODIUM 25MCG TABLET PO SCH (07:02)
[2018-01-26 08:00] VITALS: BP 111/49
[2018-01-26] MEDS: CLOPIDOGREL 75MG TABLET PO SCH (08:26)
[2018-01-26] MEDS: FAMOTIDINE 20MG TABLET PO SCH (08:26)
[2018-01-26] MEDS: ASPIRIN 325MG EC TABLET PO SCH (08:26)
[2018-01-26] MEDS: TAMSULOSIN HCL 0.4MG SR CAPSULE PO SCH (08:27)
[2018-01-26] MEDS: AMLODIPINE 10MG TABLET PO SCH (08:27)
[2018-01-26] MEDS: ENOXAPARIN 40MG/0.4ML SYR SUBCUT SCH (08:28)
[2018-01-26] MEDS: TRAMADOL 50MG TABLET PO PRN (08:28)
[2018-01-26] MEDS: CARVEDILOL 25MG TABLET PO SCH ×2 (08:29→21:48)
[2018-01-26 08:45] LABS: BASOPHILS % 1.2 % (0.0-2.0); HEMATOCRIT. 39.4 % (42.0-52.0); HEMOGLOBIN. 13.5 g/dL (14.0-18.0); LYMPHOCYTES % 21.9 % (20.0-50.0); MEAN CORPUSCULAR HEMOGLOBIN 28.4 pg (28.0-32.0); MEAN CORPUSCULAR VOLUME 83.3 fL (80.0-94.0); MEAN PLATELET VOLUME 9.6 fl (7.4-10.4); MONOCYTES % 13.9 % (2.0-8.0); PLATELET 188 x1000/uL (130-400); RED BLOOD CELL COUNT 4.73 mill/uL (4.7-6.1); RED CELL DISTRIBUTION WIDTH 13.2 % (11.6-14.6)
[2018-01-26] MEDS ORDERED: LEVOFLOXACIN 250MG TABLET PO SCH (11:00)
[2018-01-26] MEDS: LACTULOSE 20G/30ML UDC PO NR ×4 (11:38→21:48)
[2018-01-26] MEDS ORDERED: LIDOCAINE HCL/PF 1% 2ML VIAL ONE (13:20)
[2018-01-26] MEDS: IPRATROPIUM/ALBUTEROL 0.5-3(2.5)MG/3ML NEB HHN SCH ×2 (15:55→20:46)
[2018-01-26 16:01] LABS: BG BASE EXCESS -7.6 mmol/L (-2.0-2.0); BG DEOXYHEMOGLOBIN 2.3 % (0.0-5.0); BG FRACTION INSPIRED OXYGEN 21; BG METHEMOGLOBIN 0.1 % (0.0-1.5); BG OXYGEN SATURATION 97.7 % (92.0-98.5); BG OXYHEMOGLOBIN 97.6 % (94.0-97.0); BG PCO2 23.8 mmHg (35.0-45.0); BG PH 7.416 (7.350-7.450); BG PO2 108.7 mmHg (75.0-100.0); BG SAMPLE SITE RIGHT RADIAL; BG TOTAL HEMOGLOBIN 13.6 g/dL (12.0-18.0); BG VENT MODE ROOM AIR
[2018-01-26 19:11] LABS: ANTI-NUCLEAR ANTIBODIES DIRECT Negative (Negative)
[2018-01-26 20:00] VITALS: BP 130/62
[2018-01-26] MEDS: ATORVASTATIN CALCIUM 10MG TABLET PO SCH (21:47)
[2018-01-26] MEDS: CEPHALEXIN 500MG CAPSULE PO SCH (23:43)
[2018-01-27] MEDS: IPRATROPIUM/ALBUTEROL 0.5-3(2.5)MG/3ML NEB HHN SCH ×3 (04:00→21:19)
[2018-01-27] MEDS: HYDRALAZINE HCL 50MG TABLET PO SCH ×3 (05:40→22:00)
[2018-01-27] MEDS: LEVOTHYROXINE SODIUM 25MCG TABLET PO SCH (06:15)
[2018-01-27] MEDS: CEPHALEXIN 500MG CAPSULE PO SCH (06:15)
[2018-01-27] MEDS: SODIUM CHLORIDE 0.9% 1,000 ML IV SCH ×2 (06:16→17:18)
[2018-01-27 08:00] VITALS: BP 150/85
[2018-01-27] MEDS: ASPIRIN 325MG EC TABLET PO SCH (08:53)
[2018-01-27] MEDS: TAMSULOSIN HCL 0.4MG SR CAPSULE PO SCH (08:53)
[2018-01-27] MEDS: AMLODIPINE 10MG TABLET PO SCH (08:53)
[2018-01-27] MEDS: CLOPIDOGREL 75MG TABLET PO SCH (08:54)
[2018-01-27] MEDS: CARVEDILOL 25MG TABLET PO SCH ×2 (08:54→21:44)
[2018-01-27] MEDS: FAMOTIDINE 20MG TABLET PO SCH ×2 (08:54→21:45)
[2018-01-27] MEDS: ENOXAPARIN 40MG/0.4ML SYR SUBCUT SCH ×2 (08:55→21:46)
[2018-01-27] MEDS: LACTULOSE 20G/30ML UDC PO NR ×4 (08:56→21:45)
[2018-01-27 09:35] LABS: BASOPHILS % 1.2 % (0.0-2.0); EOSINOPHILS % 6.1 % (0.0-5.0); HEMATOCRIT. 39.8 % (42.0-52.0); HEMOGLOBIN. 13.7 g/dL (14.0-18.0); LYMPHOCYTES % 22.1 % (20.0-50.0); MEAN CORPUSCULAR HEMOGLOBIN 28.9 pg (28.0-32.0); MEAN CORPUSCULAR VOLUME 83.6 fL (80.0-94.0); MEAN PLATELET VOLUME 9.3 fl (7.4-10.4); MONOCYTES % 13.9 % (2.0-8.0); NEUTROPHILS % 56.7 % (40.0-76.0); PLATELET 193 x1000/uL (130-400); RED BLOOD CELL COUNT 4.76 mill/uL (4.7-6.1); RED CELL DISTRIBUTION WIDTH 13.1 % (11.6-14.6)
[2018-01-27] MEDS: SULFAMETHOXAZOLE/TRIMETHOPRIM 800/160MG TABLET PO SCH ×2 (11:51→21:43)
[2018-01-27 20:00] VITALS: BP 125/75
[2018-01-27] MEDS: ATORVASTATIN CALCIUM 10MG TABLET PO SCH (21:43)
[2018-01-28] MEDS: IPRATROPIUM/ALBUTEROL 0.5-3(2.5)MG/3ML NEB HHN SCH ×6 (01:16→21:55)
[2018-01-28] MEDS: HYDRALAZINE HCL 50MG TABLET PO SCH ×3 (06:00→22:00)
[2018-01-28] MEDS: LEVOTHYROXINE SODIUM 25MCG TABLET PO SCH (06:04)
[2018-01-28] MEDS: SODIUM CHLORIDE 0.9% 1,000 ML IV SCH (06:04)
[2018-01-28 07:30] VITALS: BP 149/62
[2018-01-28 08:13] LABS: BASOPHILS % 1.2 % (0.0-2.0); EOSINOPHILS % 5.4 % (0.0-5.0); HEMATOCRIT. 38.9 % (42.0-52.0); HEMOGLOBIN. 13.5 g/dL (14.0-18.0); LYMPHOCYTES % 20.9 % (20.0-50.0); MEAN CORPUSCULAR HEMOGLOBIN 29.1 pg (28.0-32.0); MEAN CORPUSCULAR VOLUME 83.6 fL (80.0-94.0); MEAN PLATELET VOLUME 9.3 fl (7.4-10.4); MONOCYTES % 12.2 % (2.0-8.0); NEUTROPHILS % 60.3 % (40.0-76.0); PLATELET 193 x1000/uL (130-400); RED BLOOD CELL COUNT 4.65 mill/uL (4.7-6.1)
[2018-01-28] MEDS: SULFAMETHOXAZOLE/TRIMETHOPRIM 800/160MG TABLET PO SCH ×2 (09:15→20:56)
[2018-01-28] MEDS: TAMSULOSIN HCL 0.4MG SR CAPSULE PO SCH (09:15)
[2018-01-28] MEDS: AMLODIPINE 10MG TABLET PO SCH (09:15)
[2018-01-28] MEDS: CLOPIDOGREL 75MG TABLET PO SCH (09:15)
[2018-01-28] MEDS: ASPIRIN 325MG EC TABLET PO SCH (09:15)
[2018-01-28] MEDS: CARVEDILOL 25MG TABLET PO SCH ×2 (09:16→20:56)
[2018-01-28] MEDS: FAMOTIDINE 20MG TABLET PO SCH ×2 (09:16→20:56)
[2018-01-28] MEDS: ENOXAPARIN 40MG/0.4ML SYR SUBCUT SCH ×2 (09:16→20:57)
[2018-01-28] MEDS: LACTULOSE 20G/30ML UDC PO NR ×4 (09:39→21:06)
[2018-01-28 13:50] VITALS: BP 144/78
[2018-01-28 20:00] VITALS: BP 142/78
[2018-01-28] MEDS: ATORVASTATIN CALCIUM 10MG TABLET PO SCH (20:56)
[2018-01-29] MEDS: IPRATROPIUM/ALBUTEROL 0.5-3(2.5)MG/3ML NEB HHN SCH ×8 (01:40→20:10)
[2018-01-29] MEDS: HYDRALAZINE HCL 50MG TABLET PO SCH ×3 (06:12→22:00)
[2018-01-29] MEDS: LEVOTHYROXINE SODIUM 25MCG TABLET PO SCH (06:12)
[2018-01-29 08:00] VITALS: BP 140/61
[2018-01-29] MEDS: SULFAMETHOXAZOLE/TRIMETHOPRIM 800/160MG TABLET PO SCH ×2 (08:17→22:16)
[2018-01-29] MEDS: CLOPIDOGREL 75MG TABLET PO SCH (08:17)
[2018-01-29] MEDS: CARVEDILOL 25MG TABLET PO SCH ×2 (08:17→21:00)
[2018-01-29] MEDS: ASPIRIN 325MG EC TABLET PO SCH (08:18)
[2018-01-29] MEDS: TAMSULOSIN HCL 0.4MG SR CAPSULE PO SCH (08:18)
[2018-01-29] MEDS: ENOXAPARIN 40MG/0.4ML SYR SUBCUT SCH ×2 (08:18→22:15)
[2018-01-29] MEDS: AMLODIPINE 10MG TABLET PO SCH (08:18)
[2018-01-29] MEDS: FAMOTIDINE 20MG TABLET PO SCH ×2 (08:18→22:12)
[2018-01-29] MEDS: LACTULOSE 20G/30ML UDC PO NR ×4 (08:33→21:00)
[2018-01-29 09:11] LABS: COMPLEMENT C3 140 mg/dL (82-167)
[2018-01-29 09:22] LABS: BASOPHILS % 0.9 % (0.0-2.0); EOSINOPHILS % 4.7 % (0.0-5.0); HEMATOCRIT. 39.4 % (42.0-52.0); HEMOGLOBIN. 13.8 g/dL (14.0-18.0); LYMPHOCYTES % 18.4 % (20.0-50.0); MEAN CORPUSCULAR HEMOGLOBIN 29.5 pg (28.0-32.0); MEAN CORPUSCULAR VOLUME 83.8 fL (80.0-94.0); MEAN PLATELET VOLUME 9.4 fl (7.4-10.4); MONOCYTES % 9.3 % (2.0-8.0); NEUTROPHILS % 66.7 % (40.0-76.0); PLATELET 214 x1000/uL (130-400); RED CELL DISTRIBUTION WIDTH 13.2 % (11.6-14.6)
[2018-01-29 10:06] LABS: 25-HYDROXY VITAMIN D3 5.3 ng/mL (.)
[2018-01-29 12:50] VITALS: BP 143/72
[2018-01-29] MEDS ORDERED: ERGOCALCIFEROL 50000UNITS CAPSULE PO SCH ×2 (17:00→21:00)
[2018-01-29 20:00] VITALS: BP 126/51
[2018-01-29] MEDS: ATORVASTATIN CALCIUM 10MG TABLET PO SCH (22:12)
[2018-01-30] MEDS: HYDRALAZINE HCL 50MG TABLET PO SCH ×3 (06:00→22:00)
[2018-01-30] MEDS: LEVOTHYROXINE SODIUM 25MCG TABLET PO SCH (06:00)
[2018-01-30] MEDS: IPRATROPIUM/ALBUTEROL 0.5-3(2.5)MG/3ML NEB HHN SCH ×4 (07:44→21:43)
[2018-01-30 08:00] VITALS: BP 135/76
[2018-01-30] MEDS: AMLODIPINE 10MG TABLET PO SCH (09:13)
[2018-01-30] MEDS: SULFAMETHOXAZOLE/TRIMETHOPRIM 800/160MG TABLET PO SCH ×2 (09:14→21:36)
[2018-01-30] MEDS: ASPIRIN 325MG EC TABLET PO SCH (09:14)
[2018-01-30] MEDS: TAMSULOSIN HCL 0.4MG SR CAPSULE PO SCH (09:14)
[2018-01-30] MEDS: CLOPIDOGREL 75MG TABLET PO SCH (09:15)
[2018-01-30] MEDS: CARVEDILOL 25MG TABLET PO SCH ×2 (09:15→21:00)
[2018-01-30] MEDS: FAMOTIDINE 20MG TABLET PO SCH ×2 (09:15→21:36)
[2018-01-30] MEDS: ENOXAPARIN 40MG/0.4ML SYR SUBCUT SCH ×2 (09:18→21:37)
[2018-01-30] MEDS: LACTULOSE 20G/30ML UDC PO NR ×4 (09:18→21:00)
[2018-01-30 20:00] VITALS: BP 123/68
[2018-01-30] MEDS: ATORVASTATIN CALCIUM 10MG TABLET PO SCH (21:36)
[2018-01-31] MEDS: IPRATROPIUM/ALBUTEROL 0.5-3(2.5)MG/3ML NEB HHN SCH ×6 (00:01→20:47)
[2018-01-31] MEDS: LEVOTHYROXINE SODIUM 25MCG TABLET PO SCH (06:14)
[2018-01-31] MEDS: HYDRALAZINE HCL 50MG TABLET PO SCH ×3 (06:15→21:07)
[2018-01-31 08:00] VITALS: BP 115/55
[2018-01-31] MEDS: LACTULOSE 20G/30ML UDC PO NR ×4 (09:12→21:07)
[2018-01-31] MEDS: TAMSULOSIN HCL 0.4MG SR CAPSULE PO SCH (09:15)
[2018-01-31] MEDS: CARVEDILOL 25MG TABLET PO SCH ×2 (09:15→21:06)
[2018-01-31] MEDS: ASPIRIN 325MG EC TABLET PO SCH (09:15)
[2018-01-31] MEDS: FAMOTIDINE 20MG TABLET PO SCH ×2 (09:16→21:06)
[2018-01-31] MEDS: SULFAMETHOXAZOLE/TRIMETHOPRIM 800/160MG TABLET PO SCH ×2 (09:16→21:06)
[2018-01-31] MEDS: CLOPIDOGREL 75MG TABLET PO SCH (09:16)
[2018-01-31] MEDS: AMLODIPINE 10MG TABLET PO SCH (09:16)
[2018-01-31] MEDS: ENOXAPARIN 40MG/0.4ML SYR SUBCUT SCH ×2 (09:18→21:06)
[2018-01-31 10:36] LABS: EOSINOPHILS % 3.5 % (0.0-5.0); HEMATOCRIT. 38.4 % (42.0-52.0); HEMOGLOBIN. 13.3 g/dL (14.0-18.0); LYMPHOCYTES % 17.9 % (20.0-50.0); MEAN CORPUSCULAR HEMOGLOBIN 28.8 pg (28.0-32.0); MEAN CORPUSCULAR VOLUME 83.3 fL (80.0-94.0); MEAN PLATELET VOLUME 9.2 fl (7.4-10.4); NEUTROPHILS % 66.6 % (40.0-76.0); PLATELET 218 x1000/uL (130-400); RED BLOOD CELL COUNT 4.61 mill/uL (4.7-6.1); RED CELL DISTRIBUTION WIDTH 13.4 % (11.6-14.6)
[2018-01-31 11:06] LABS: PHOSPHORUS 3.4 mg/dL (2.5-4.9)
[2018-01-31 20:00] VITALS: BP 141/59
[2018-01-31] MEDS: ATORVASTATIN CALCIUM 10MG TABLET PO SCH (21:06)
[2018-02-01] MEDS: IPRATROPIUM/ALBUTEROL 0.5-3(2.5)MG/3ML NEB HHN SCH ×3 (04:48→08:00)
[2018-02-01] MEDS: HYDRALAZINE HCL 50MG TABLET PO SCH (06:00)
[2018-02-01] MEDS: LEVOTHYROXINE SODIUM 25MCG TABLET PO SCH (06:17)
[2018-02-01 08:00] VITALS: BP 131/71
[2018-02-01] MEDS: LACTULOSE 20G/30ML UDC PO NR (08:39)
[2018-02-01] MEDS: TAMSULOSIN HCL 0.4MG SR CAPSULE PO SCH (08:42)
[2018-02-01] MEDS: CLOPIDOGREL 75MG TABLET PO SCH (08:42)
[2018-02-01] MEDS: AMLODIPINE 10MG TABLET PO SCH (08:42)
[2018-02-01] MEDS: ASPIRIN 325MG EC TABLET PO SCH (08:43)
[2018-02-01] MEDS: SULFAMETHOXAZOLE/TRIMETHOPRIM 800/160MG TABLET PO SCH (08:43)
[2018-02-01] MEDS: FAMOTIDINE 20MG TABLET PO SCH (08:43)
[2018-02-01] MEDS: CARVEDILOL 25MG TABLET PO SCH (08:44)
[2018-02-01] MEDS: ENOXAPARIN 40MG/0.4ML SYR SUBCUT SCH (08:45)
[2018-02-01 11:38] VITALS: BP 131/71
== END 2018-02-01 13:20 | disposition home health service (06) | DRG 64 ==
PROVIDERS: ADMIT Physical Medicine & Rehabilitation Spinal Cord Injury Medicine; ATTEND Internal Medicine
DX: I63.9 Cerebral infarction, unspecified (principal); N17.0 Acute kidney failure with tubular necrosis; E46 Unspecified protein-calorie malnutrition; E87.1 Hypo-osmolality and hyponatremia; R13.10 Dysphagia, unspecified; F01.51 Vascular dementia, unspecified severity, with behavioral disturbance; G81.91 Hemiplegia, unspecified affecting right dominant side; I69.354 Hemiplegia and hemiparesis following cerebral infarction affecting left non-dominant side; I42.9 Cardiomyopathy, unspecified; N39.0 Urinary tract infection, site not specified; Z68.42 Body mass index [BMI] 45.0-49.9, adult; J44.9 Chronic obstructive pulmonary disease, unspecified; E03.9 Hypothyroidism, unspecified; E78.00 Pure hypercholesterolemia, unspecified; I12.9 Hypertensive chronic kidney disease with stage 1 through stage 4 chronic kidney disease, or unspecified chronic kidney disease; N18.9 Chronic kidney disease, unspecified; Z88.8 Allergy status to other drugs, medicaments and biological substances; I25.2 Old myocardial infarction; D64.9 Anemia, unspecified; R47.01 Aphasia; R47.1 Dysarthria and anarthria; R26.9 Unspecified abnormalities of gait and mobility; R53.81 Other malaise; E86.9 Volume depletion, unspecified; F80.9 Developmental disorder of speech and language, unspecified; Z82.49 Family history of ischemic heart disease and other diseases of the circulatory system; M19.90 Unspecified osteoarthritis, unspecified site; R09.02 Hypoxemia; E55.9 Vitamin D deficiency, unspecified; F06.31 Mood disorder due to known physiological condition with depressive features; I25.10 Atherosclerotic heart disease of native coronary artery without angina pectoris
CPT/HCPCS: 36415; 36600; 71045; 76770; 80048; 80053; 81003; 82306; 82375; 82550; 82607; 82728; 82746; 82805; 83036; 83540; 83550; 83735; 84100; 84134; 84153; 84443; 84630; 85025; 86038; 86160; 87077; 87086; 87186; 92523; 93970; 94640; 94664; 97110; 97112; 97116; 97127; 97163; 97166; 97530; 97535; C1893; J1650; J3490; J7030; J7620; A4315